=== PATIENT | female | born 1975 | race American Indian/Alaskan Native ===

== ENCOUNTER 2017-03-20 10:53 | Emergency (ER) | payer SELFPAY ==
[2017-03-20 11:58] LABS: Anion Gap 18 mmol/L; BUN/Creatinine Ratio 26; Blood Urea Nitrogen 13 mg/dL (7-17); Calcium 9.5 mg/dL (8.4-10.2); Carbon Dioxide 23 mmol/L (22-30); Chloride 99.7 mmol/L (98-107); Glucose 230 mg/dL (65-100); Potassium 4.8 mmol/L (3.6-5.0); Sodium 136 mmol/L (137-145)
[2017-03-20 12:27] LABS: Basophils % (Auto) 0.6 % (0.0-1.8); Eosinophils % (Auto) 1.2 % (0.0-4.3); Hematocrit 40.8 % (30.3-42.9); Hemoglobin 13.4 gm/dl (10.1-14.3); Mean Corpuscular HGB Conc 33 % (30-34); Mean Corpuscular Hemoglobin 31 pg (28-32); Mean Corpuscular Volume 95 fl (79-97); Platelet Count 356 K/mm3 (140-440); Red Blood Count 4.29 M/mm3 (3.65-5.03); Red Cell Distribution Width 12.4 % (13.2-15.2); White Blood Count 8.8 K/mm3 (4.5-11.0)
[2017-03-20] MEDS ORDERED: MORPHINE IV ONE (23:04)
[2017-03-20] MEDS ORDERED: NORCO 10/325 PO ONE (23:40)
--- NOTE | 2017-03-21 01:20 | Emergency Department Report ---
ED General Adult HPI - General Chief complaint: Chest Pain Stated complaint: CHEST PAIN Time Seen by Provider: 03/20/17 23:03 Source: patient Mode of arrival: Ambulatory Limitations: No Limitations - History of Present Illness Initial comments: Patient is a 41-year-old female past medical history of diabetes and hypertension who presents with chest pain. Patient states that chest pain has been going on for the last 2 days is located in the middle of her chest and hurts more when she breathes nothing makes it better. Patient also states that she feels some shortness of breath that's been going on for last couple days. It is worse with exertion and better with rest. It is gradual onset patient denies having any leg swelling or having any nausea or vomiting. Severity scale (0 -10): 4 - Related Data Previous Rx's Medication Instructions Recorded Last Taken Type Naproxen 250 mg PO BID PRN #20 tablet 03/21/17 Unknown Rx Allergies Allergy/AdvReac Type Severity Reaction Status Date / Time No Known Allergies Allergy Unverified 03/20/17 11:10 ED Review of Systems ROS: Stated complaint: CHEST PAIN Other details as noted in HPI Constitutional: denies: chills, fever Eyes: denies: eye pain, eye discharge, vision change ENT: denies: ear pain, throat pain Respiratory: shortness of breath. denies: cough, wheezing Cardiovascular: chest pain. denies: palpitations Endocrine: no symptoms reported Gastrointestinal: denies: abdominal pain, nausea, diarrhea Genitourinary: denies: urgency, dysuria, discharge Musculoskeletal: denies: back pain, joint swelling, arthralgia Skin: denies: rash, lesions Neurological: denies: headache, weakness, paresthesias Psychiatric: denies: anxiety, depression Hematological/Lymphatic: denies: easy bleeding, easy bruising ED Past Medical Hx - Past Medical History Previous Medical History?: Yes Hx Diabetes: Yes - Surgical History Past Surgical History?: No - Social History Smoking Status: Never Smoker Substance Use Type: None - Medications Home Medications: Home Medications Medication Instructions Recorded Confirmed Last Taken Type Naproxen 250 mg PO BID PRN #20 tablet 03/21/17 Unknown Rx ED Physical Exam - General Limitations: No Limitations General appearance: alert, in no apparent distress - Head Head exam: Present: atraumatic, normocephalic - Eye Eye exam: Present: normal appearance - ENT ENT exam: Present: mucous membranes moist - Neck Neck exam: Present: normal inspection - Respiratory Respiratory exam: Present: normal lung sounds bilaterally. Absent: respiratory distress - Cardiovascular Cardiovascular Exam: Present: regular rate, normal rhythm. Absent: systolic murmur, diastolic murmur, rubs, gallop - GI/Abdominal GI/Abdominal exam: Present: soft, normal bowel sounds - Extremities Exam Extremities exam: Present: normal inspection - Back Exam Back exam: Present: normal inspection - Neurological Exam Neurological exam: Present: alert, oriented X3 - Psychiatric Psychiatric exam: Present: normal affect, normal mood - Skin Skin exam: Present: warm, dry, intact, normal color. Absent: rash ED Course Vital Signs 03/20/17 03/20/17 03/20/17 11:06 17:05 23:30 Temperature 98.5 F 98.6 F 98.3 F Pulse Rate 93 H 86 83 Respiratory 24 20 12 Rate Blood Pressure 143/94 129/88 Blood Pressure 137/84 [Left] O2 Sat by Pulse 100 100 Oximetry ED Medical Decision Making - Lab Data Result diagrams: 03/20/17 11:21 03/20/17 11:21 Lab Results 03/20/17 03/20/17 03/20/17 Range/Units 11:21 11:21 14:40 WBC 8.8 (4.5-11.0) K/mm3 RBC 4.29 (3.65-5.03) M/mm3 Hgb 13.4 (10.1-14.3) gm/dl Hct 40.8 (30.3-42.9) % MCV 95 (79-97) fl MCH 31 (28-32) pg MCHC 33 (30-34) % RDW 12.4 L (13.2-15.2) % Plt Count 356 (140-440) K/mm3 Lymph % (Auto) 27.9 (13.4-35.0) % [place] % (Auto) 5.7 (0.0-7.3) % Eos % (Auto) 1.2 (0.0-4.3) % Baso % (Auto) 0.6 (0.0-1.8) % Lymph # 2.5 (1.2-5.4) K/mm3 [place] # 0.5 (0.0-0.8) K/mm3 Eos # 0.1 (0.0-0.4) K/mm3 Baso # 0.1 (0.0-0.1) K/mm3 Seg Neutrophils % 64.6 (40.0-70.0) % Seg Neutrophils # 5.7 (1.8-7.7) K/mm3 Sodium 136 L (137-145) mmol/L Potassium 4.8 (3.6-5.0) mmol/L Chloride 99.7 (98-107) mmol/L Carbon Dioxide 23 (22-30) mmol/L Anion Gap 18 mmol/L BUN 13 (7-17) mg/dL Creatinine 0.5 L (0.7-1.2) mg/dL Estimated GFR > 60 ml/min BUN/Creatinine Ratio 26 % Glucose 230 H (65-100) mg/dL Calcium 9.5 (8.4-10.2) mg/dL Troponin T < 0.010 < 0.010 (0.00-0.029) ng/mL NT-Pro-B Natriuret Pep (0-450) pg/mL 03/20/17 03/20/17 Range/Units 23:14 23:14 WBC (4.5-11.0) K/mm3 RBC (3.65-5.03) M/mm3 Hgb (10.1-14.3) gm/dl Hct (30.3-42.9) % MCV (79-97) fl MCH (28-32) pg MCHC (30-34) % RDW (13.2-15.2) % Plt Count (140-440) K/mm3 Lymph % (Auto) (13.4-35.0) % [place] % (Auto) (0.0-7.3) % Eos % (Auto) (0.0-4.3) % Baso % (Auto) (0.0-1.8) % Lymph # (1.2-5.4) K/mm3 [place] # (0.0-0.8) K/mm3 Eos # (0.0-0.4) K/mm3 Baso # (0.0-0.1) K/mm3 Seg Neutrophils % (40.0-70.0) % Seg Neutrophils # (1.8-7.7) K/mm3 Sodium (137-145) mmol/L Potassium (3.6-5.0) mmol/L Chloride (98-107) mmol/L Carbon Dioxide (22-30) mmol/L Anion Gap mmol/L BUN (7-17) mg/dL Creatinine (0.7-1.2) mg/dL Estimated GFR ml/min BUN/Creatinine Ratio % Glucose (65-100) mg/dL Calcium (8.4-10.2) mg/dL Troponin T < 0.010 (0.00-0.029) ng/mL NT-Pro-B Natriuret Pep 13.01 (0-450) pg/mL - EKG Data -: EKG Interpreted by Me - EKG Data 03/21/17 01:22 EKG shows sinus rhythm signs of LVH normal access and some baseline artifact. No ST segment elevation - Radiology Data Radiology results: image reviewed Chest x-ray: Shows no acute cardiopulmonary disease - Medical Decision Making Chief medical diagnosis: Costochondritis Differential medical diagnosis: Non-STEMI, GERD, pneumonia, pneumothorax next line next I will get CBC, CMP, troponin, oral pain medication, EKG, chest x-ray Patient refuses IV scan chest x-ray is unremarkable and imaging is unremarkable. The patient has no leg swelling and her sat is 100% and no tachycardia. Patient unlikely has DVT and has no prolonged travel, leg swelling and does not take oral contraceptive pills. It is unlikely patient has a pulmonary embolism. Discuss with patient's the need for IV contrast to rule out pulmonary embolism. However irrigation shared decision making patient still refuses IV. I'll send patient home with naproxen and a diagnosis of costochondritis. Gave patient an additional verbal discharge instructions. Critical care attestation.: If time is entered above; I have spent that time in minutes in the direct care of this critically ill patient, excluding procedure time. ED Disposition Clinical Impression: SOB (shortness of breath), Hyperglycemia Chest pain Qualifiers: Chest pain type: pleurodynia Qualified Code(s): R07.81 - Pleurodynia Disposition: - TO HOME OR SELFCARE Is pt being admited?: No Does the pt Need Aspirin: No Condition: Stable Instructions: Chest Pain (ED) Prescriptions: Naproxen 250 mg PO BID PRN #20 tablet PRN Reason: Pain Referrals: CHAPARRITA DAVIS MD [Staff Physician] - 3-5 Days
[2017-03-21 03:04] VITALS: BP 112/61
--- NOTE | 2017-03-21 08:24 | XRay Report ---
CHEST 2 VIEWS INDICATION: Chest pain, started when walking stairs. COMPARISON: None similar. FINDINGS: PA and lateral chest radiographs demonstrate normal cardiomediastinal silhouette and clear lungs, given the inspiration. Right hemidiaphragm slightly elevated. Intact bones. CONCLUSION: No acute disease in the chest. Thank you for the opportunity to participate in this patient's care.
== END 2017-03-21 01:30 | disposition home or self-care (01) ==
LOC: ED 10:53
DX: R07.81 Pleurodynia (principal); E11.65 Type 2 diabetes mellitus with hyperglycemia; R06.02 Shortness of breath
CPT/HCPCS: 36415; 71020; 80048; 83880; 84484; 85025; 93005; 93010

== ENCOUNTER 2018-09-30 18:55 | Emergency (ER) | payer OTHER ==
[2018-09-30] MEDS ORDERED: ASPIRIN PO ONE (19:38)
[2018-09-30 20:38] LABS: Basophils # (Auto) 0.2 K/mm3 (0.0-0.1); Basophils % (Auto) 1.5 % (0.0-1.8); Eosinophils # (Auto) 0.1 K/mm3 (0.0-0.4); Eosinophils % (Auto) 1.5 % (0.0-4.3); Hematocrit 41.3 % (30.3-42.9); Hemoglobin 14.3 gm/dl (10.1-14.3); Lymphocytes # (Auto) 2.8 K/mm3 (1.2-5.4); Lymphocytes % (Auto) 27.2 % (13.4-35.0); Mean Corpuscular HGB Conc 35 % (30-34); Mean Corpuscular Volume 96 fl (79-97); Monocytes # (Auto) 0.6 K/mm3 (0.0-0.8); Monocytes % (Auto) 5.5 % (0.0-7.3); Platelet Count 362 K/mm3 (140-440); Red Cell Distribution Width 12.6 % (13.2-15.2)
[2018-09-30 21:01] LABS: BUN/Creatinine Ratio 17; Blood Urea Nitrogen 10 mg/dL (7-17); Calcium 9.7 mg/dL (8.4-10.2); Hemolysis Index 27
--- NOTE | 2018-09-30 21:25 | XRay Report ---
PROCEDURE: XR CHEST ROUTINE 2V TECHNIQUE: Chest radiograph , PA and lateral views. HISTORY: Chest Pain COMPARISONS: CXR 03/20/2017 . FINDINGS: Heart: Normal. Mediastinum/Vessels: Normal. Lungs/Pleural space: Normal. Bony thorax: No acute osseous abnormality. Life support devices: None. IMPRESSION: No acute cardiopulmonary abnormality. No change This document is electronically signed by Dannielle Monson MD., September 30 2018 09:23:01 PM ET
[2018-09-30] MEDS ORDERED: HumuLIN R IV ONE (22:47)
[2018-09-30] MEDS ORDERED: NACL 0.9% 1000 ML 1,000 ML IV ONE (22:47)
--- NOTE | 2018-09-30 23:47 | Emergency Department Report ---
HPI - General Chief Complaint: Weakness Time Seen by Provider: 09/30/18 22:23 - HPI HPI: 43-year-old female presents to the emergency department with a complaint of intermittent right-sided headaches and some general weakness. Patient says that she had a TIA last year and these headaches are the same that she had prior to having the TIA. She has a history of [id number] diabetes and peripheral neuropathy. She denies any vision change, slurred speech, nausea, vomiting, chest pain or any neurological deficits. Patient does say that she has some occasional exertional shortness of breath when she is climbing her stairs. She has no shortness of breath at rest or orthopnea. No recent travel or sick contacts at home. She goes to [facility] for her primary care needs. She has not taken anything for her symptoms prior to arrival. ED Past Medical Hx - Past Medical History Previous Medical History?: Yes Hx CVA: Yes (left-sided weakness) Hx Diabetes: Yes - Surgical History Past Surgical History?: No - Social History Smoking Status: Never Smoker Substance Use Type: None - Medications Home Medications: Home Medications Medication Instructions Recorded Confirmed Last Taken Type Naproxen 250 mg PO BID PRN #20 tablet 03/21/17 Unknown Rx ED Review of Systems ROS: Stated complaint: [place]LEY/CHEST PAIN Other details as noted in HPI Comment: All other systems reviewed and negative Constitutional: weakness. denies: chills, fever Eyes: denies: eye pain, vision change ENT: denies: ear pain, throat pain Respiratory: SOB with exertion. denies: cough Cardiovascular: denies: chest pain, palpitations Gastrointestinal: denies: abdominal pain, vomiting Genitourinary: denies: dysuria, discharge Musculoskeletal: denies: back pain, arthralgia Skin: denies: rash, lesions Neurological: headache (intermittent). denies: numbness, paresthesias, confusion Physical Exam - Physical Exam Vital Signs: Vital Signs 09/30/18 09/30/18 09/30/18 19:36 22:18 22:45 Temperature 98.7 F Pulse Rate 108 H Respiratory 18 18 Rate Blood Pressure 154/101 O2 Sat by Pulse 97 98 99 Oximetry 09/30/18 23:31 Temperature Pulse Rate 88 Respiratory 11 L Rate Blood Pressure 120/68 O2 Sat by Pulse 98 Oximetry Physical Exam: GENERAL: The patient is well-developed well-nourished. HEENT: Normocephalic. Atraumatic. Patient has moist mucous membranes. EYES: Extraocular motions are intact. Pupils are equal and reactive to light bilaterally. No nystagmus. NECK: Supple. Trachea is midline. CHEST/LUNGS: Clear to auscultation. There is no respiratory distress noted. HEART/CARDIOVASCULAR: Regular. There is no tachycardia. There is no obvious murmur. ABDOMEN: Abdomen is soft, nontender. Patient has normal bowel sounds. There is no abdominal distention. SKIN: Skin is warm and dry. NEURO: The patient is awake, alert, and oriented. The patient is cooperative. The patient has no focal neurologic deficits. The patient has normal speech. Cranial nerves II through XII grossly intact. No pronator drift. No dysmetria. No facial asymmetry. MUSCULOSKELETAL: There is no tenderness or deformity. There is no limitation range of motion. There is no evidence of acute injury. ED Course Vital Signs 09/30/18 09/30/18 09/30/18 19:36 22:18 22:45 Temperature 98.7 F Pulse Rate 108 H Respiratory 18 18 Rate Blood Pressure 154/101 O2 Sat by Pulse 97 98 99 Oximetry 09/30/18 23:31 Temperature Pulse Rate 88 Respiratory 11 L Rate Blood Pressure 120/68 O2 Sat by Pulse 98 Oximetry ED Medical Decision Making - Lab Data Result diagrams: 09/30/18 20:06 09/30/18 20:06 - EKG Data -: EKG Interpreted by Me EKG shows normal: sinus rhythm, axis, intervals, QRS complexes (q waves to the anterior leads), ST-T waves Rate: normal - EKG Data When compared to previous EKG there are: no significant change Interpretation: unchanged when compared t (03/20/17) - Radiology Data Radiology results: report reviewed, image reviewed interpreted by me: Chest x-ray does not show any pneumothorax, pleural effusion, pneumonia or obvious focal consolidation. PROCEDURE: CT HEAD/BRAIN WO CON TECHNIQUE: Routine axial imaging was obtained of the brain without IV contrast. HISTORY: weakness COMPARISONS: None FINDINGS: There is no evidence of acute stroke or hemorrhage. The ventricular system is appropriate in size and is symmetric. The basal cisterns appear normal. The sinuses reveal mild mucosal thickening in the sphenoid sinus. The mastoid air cells are well pneumatized. The calvarium is unremarkable. IMPRESSION: No acute intracranial process.. This document is electronically signed by Maikol Maya MD., October 01 2018 12:38:12 AM ET Transcribed By: RB Dictated By: MAIKOL MAYA MD Electronically Authenticated By: MAIKOL MAYA MD Signed Date/Time: 10/01/18 0040 - Medical Decision Making Patient presents with a complaint of an intermittent right-sided headache and some generalized weakness. On examination she has no focal, motor or sensory deficits and cranial nerves are intact. She has an NIH stroke scale of 0. CT scan of the head without contrast was done that does not show any bleed, shift, mass, ischemia or any other acute process. EKG shows some Q waves to the anterior leads but otherwise no ST elevation CA or dysrhythmia and is unchanged from previous. Patient's labs were mostly unremarkable except for hyperglycemia and elevated TSH level. Blood sugar was about 380 but there is no venous acidosis or elevated anion gap. Patient was given some IV fluid resuscitation and a dose of IV insulin and her blood sugar came down into the 200s. She had an elevated TSH of about 9 but a normal free T4 level. Vital signs stable throughout her ED course. The patient was reevaluated multiple times of arrival 12 hours and says that she is feeling improved. She'll be discharged home to follow up with her primary care physician. She will return to the ER with any worsening of her symptoms or any acute distress. We discussed staying away from foods that are high in sugar, carbohydrates and starches and she will keep a blood sugar log. - Differential Diagnosis TIA, HHNK, DKA, Dysrythmia Critical Care Time: No Critical care attestation.: If time is entered above; I have spent that time in minutes in the direct care of this critically ill patient, excluding procedure time. ED Disposition Clinical Impression: Intermittent headache, Hyperglycemia without ketosis, Generalized weakness Disposition: DC-01 TO HOME OR SELFCARE Is pt being admited?: No Condition: Stable Instructions: Weakness (ED), Acute Headache (ED), Diabetic Hyperglycemia (ED) Additional Instructions: Please follow-up with your primary care physician in the next few days. Return to the emergency Department with any worsening of your symptoms or any acute d istress. Continue taking all of your medications as previously prescribed. Try and stay away from foods that are high in carbohydrates, starches and sugars. Keep a blood sugar log. Referrals: Primary Care Provider, Your [Other] - 3-5 Days Time of Disposition: 01:20 - Assessment Assessment Interval: Baseline - Level of Consciousness 1a. Level of Consciousness: alert/keenly responsive - LOC Questions 1b. LOC Questions: answers both correctly - LOC Command 1c. LOC Commands: performs tasks correctly - Best Gaze 2. Best Gaze: normal - Visual 3. Visual: no visual loss - Facial Palsy 4. Facial Palsy: normal symmetrical movement - Motor Arm 5a. Motor Arm Left: no drift 5b. Motor Arm Right: no drift - Motor Leg 6a. Motor Leg Left: no drift 6b. Motor Leg Right: no drift - Limb Ataxia 7. Limb Ataxia: absent - Sensory 8. Sensory: normal - Best Language 9. Best Language: no aphasia - Dysarthria 10. Dysarthria: normal - Extinction and Inattention 11. Extinction/Inattention: no abnormality - Scoring Total Score: 0 Stroke Severity: No Stroke Symptoms
--- NOTE | 2018-10-01 00:40 | Cat Scan Report ---
PROCEDURE: CT HEAD/BRAIN WO CON TECHNIQUE: Routine axial imaging was obtained of the brain without IV contrast. HISTORY: weakness COMPARISONS: None FINDINGS: There is no evidence of acute stroke or hemorrhage. The ventricular system is appropriate in size and is symmetric. The basal cisterns appear normal. The sinuses reveal mild mucosal thickening in the sp henoid sinus. The mastoid air cells are well pneumatized. The calvarium is unremarkable. IMPRESSION: No acute intracranial process.. This document is electronically signed by Maikol Maya MD., October 01 2018 12:38:12 AM ET
[2018-10-01 01:45] VITALS: BP 127/84
== END 2018-10-01 01:44 | disposition home or self-care (01) ==
LOC: ED 18:55
DX: R51 Headache (principal); R53.1 Weakness; E11.65 Type 2 diabetes mellitus with hyperglycemia; E11.40 Type 2 diabetes mellitus with diabetic neuropathy, unspecified; Z86.73 Personal history of transient ischemic attack (TIA), and cerebral infarction without residual deficits
CPT/HCPCS: 36415; 70450; 71046; 80048; 82805; 82962; 84439; 84443; 84484; 85025; 85652; 93005; 93010; 96361; 96374; 99285; J7030; J1815

== ENCOUNTER 2020-01-31 11:15 | Emergency (ER) | payer SELFPAY ==
--- NOTE | 2020-01-31 14:06 | Emergency Department Report ---
ED Shortness of Breath HPI - General Chief Complaint: Extremity Problem,Nontraumatic Stated Complaint: SOB, LEFT ARM PAIN Time Seen by Provider: 01/31/20 11:57 Source: patient Mode of arrival: Ambulatory Limitations: No Limitations - History of Present Illness Initial Comments: Patient is a 44-year-old female presents emergency room with complaints of s hortness of breath that began this morning. She states that she was standing up trying to get ready for work and had to sit down because she felt so short of breath. she states that she then went to work and was unable to finish work because she was feeling shortness of breath with exertion. She states that she also has substernal chest pain which she describes as a tightness. She states feels a tingling sensation in her left arm. She denies any fever, cough, vomiting, diarrhea, leg swelling, pleuritic CP. She has a past medical history of DM, HTN, gallstones, "mild stroke." She denies any allergies to medications. - Related Data Previous Rx's Medication Instructions Recorded Last Taken Type Naproxen 250 mg PO BID PRN #20 tablet 03/21/17 Unknown Rx Allergies Allergy/AdvReac Type Severity Reaction Status Date / Time No Known Allergies Allergy Unverified 03/20/17 11:10 ED Review of Systems ROS: Stated complaint: SOB, LEFT ARM PAIN Other details as noted in HPI Comment: All other systems reviewed and negative ED Past Medical Hx - Past Medical History Previous Medical History?: Yes Hx CVA: Yes (left-sided weakness) Hx Diabetes: Yes - Social History Smoking Status: Never Smoker Substance Use Type: None - Medications Home Medications: Home Medications Medication Instructions Recorded Confirmed Last Taken Type Naproxen 250 mg PO BID PRN #20 tablet 03/21/17 Unknown Rx ED Physical Exam - General Limitations: No Limitations General appearance: alert, in no apparent distress - Head Head exam: Present: atraumatic, normocephalic - Eye Eye exam: Present: normal appearance - ENT ENT exam: Present: mucous membranes moist - Respiratory Respiratory exam: Present: normal lung sounds bilaterally. Absent: respiratory distress, wheezes, rales, rhonchi, stridor, chest wall tenderness, accessory muscle use, decreased breath sounds, prolonged expiratory - Cardiovascular Cardiovascular Exam: Present: regular rate, normal rhythm, normal heart sounds. Absent: systolic murmur, diastolic murmur, rubs, gallop - Extremities Exam Extremities exam: Absent: pedal edema - Neurological Exam Neurological exam: Present: alert, oriented X3 - Psychiatric Psychiatric exam: Present: normal affect, normal mood - Skin Skin exam: Present: warm, dry, intact ED Course Vital Signs 01/31/20 01/31/20 01/31/20 11:18 18:20 18:27 Temperature 98.6 F 97.9 F 97.9 F Pulse Rate 114 H 102 H 102 H Respiratory 18 18 18 Rate Blood Pressure 130/83 Blood Pressure 116/80 116/80 [Left] O2 Sat by Pulse 98 99 Oximetry - Reevaluation(s) Reevaluation #1: 01/31/20 15:08 Called lab regarding patient's delayed lab work, they state they are going to figure it out and call back ED Medical Decision Making - Lab Data Result diagrams: 01/31/20 15:28 01/31/20 13:06 Lab Results 01/31/20 01/31/20 01/31/20 Range/Units 13:06 13:06 13:06 WBC (4.5-11.0) K/mm3 RBC (3.65-5.03) M/mm3 Hgb (10.1-14.3) gm/dl Hct (30.3-42.9) % MCV (79-97) fl MCH (28-32) pg MCHC (30-34) % RDW (13.2-15.2) % Plt Count (140-440) K/mm3 Lymph % (Auto) (13.4-35.0) % [place] % (Auto) (0.0-7.3) % Eos % (Auto) (0.0-4.3) % Baso % (Auto) (0.0-1.8) % Lymph # (1.2-5.4) K/mm3 [place] # (0.0-0.8) K/mm3 Eos # (0.0-0.4) K/mm3 Baso # (0.0-0.1) K/mm3 Seg Neutrophils % (40.0-70.0) % Seg Neutrophils # (1.8-7.7) K/mm3 PT (12.2-14.9) Sec. INR (0.87-1.13) APTT (24.2-36.6) Sec. D-Dimer (0-234) ng/mlDDU Sodium 135 L (137-145) mmol/L Potassium 4.7 (3.6-5.0) mmol/L Chloride 101.3 (98-107) mmol/L Carbon Dioxide 15 L (22-30) mmol/L Anion Gap 23 mmol/L BUN 14 (7-17) mg/dL Creatinine 0.5 L (0.6-1.2) mg/dL Estimated GFR > 60 ml/min BUN/Creatinine Ratio 28 % Glucose 256 H (65-100) mg/dL Calcium 10.4 H (8.4-10.2) mg/dL Magnesium 2.40 H (1.7-2.3) mg/dL Total Bilirubin 0.50 (0.1-1.2) mg/dL AST 16 (5-40) units/L ALT 13 (7-56) units/L Alkaline Phosphatase 97 (35-129) units/L Total Creatine Kinase 60 (30-135) units/L Troponin T < 0.010 (0.00-0.029) ng/mL NT-Pro-B Natriuret Pep < 5 (0-450) pg/mL Total Protein 8.3 H (6.3-8.2) g/dL Albumin 4.0 (3.9-5) g/dL Albumin/Globulin Ratio 0.9 % TSH 4.570 H (0.270-4.200) mlU/mL Free T4 (0.76-1.46) ng/dL HCG, Qual Negative (Negative) 01/31/20 01/31/20 01/31/20 Range/Units 13:06 15:28 15:28 WBC 9.3 (4.5-11.0) K/mm3 RBC 4.55 (3.65-5.03) M/mm3 Hgb 14.7 H (10.1-14.3) gm/dl Hct 43.5 H (30.3-42.9) % MCV 96 (79-97) fl MCH 32 (28-32) pg MCHC 34 (30-34) % RDW 12.9 L (13.2-15.2) % Plt Count 386 (140-440) K/mm3 Lymph % (Auto) 26.4 (13.4-35.0) % [place] % (Auto) 6.5 (0.0-7.3) % Eos % (Auto) 0.6 (0.0-4.3) % Baso % (Auto) 0.6 (0.0-1.8) % Lymph # 2.5 (1.2-5.4) K/mm3 [place] # 0.6 (0.0-0.8) K/mm3 Eos # 0.1 (0.0-0.4) K/mm3 Baso # 0.1 (0.0-0.1) K/mm3 Seg Neutrophils % 65.9 (40.0-70.0) % Seg Neutrophils # 6.2 (1.8-7.7) K/mm3 PT 12.7 (12.2-14.9) Sec. INR 0.94 (0.87-1.13) APTT 27.4 (24.2-36.6) Sec. D-Dimer < 135.00 (0-234) ng/mlDDU Sodium (137-145) mmol/L Potassium (3.6-5.0) mmol/L Chloride (98-107) mmol/L Carbon Dioxide (22-30) mmol/L Anion Gap mmol/L BUN (7-17) mg/dL Creatinine (0.6-1.2) mg/dL Estimated GFR ml/min BUN/Creatinine Ratio % Glucose (65-100) mg/dL Calcium (8.4-10.2) mg/dL Magnesium (1.7-2.3) mg/dL Total Bilirubin (0.1-1.2) mg/dL AST (5-40) units/L ALT (7-56) units/L Alkaline Phosphatase (35-129) units/L Total Creatine Kinase (30-135) units/L Troponin T (0.00-0.029) ng/mL NT-Pro-B Natriuret Pep (0-450) pg/mL Total Protein (6.3-8.2) g/dL Albumin (3.9-5) g/dL Albumin/Globulin Ratio % TSH (0.270-4.200) mlU/mL Free T4 1.04 (0.76-1.46) ng/dL HCG, Qual (Negative) 01/31/20 Range/Units 15:28 WBC (4.5-11.0) K/mm3 RBC (3.65-5.03) M/mm3 Hgb (10.1-14.3) gm/dl Hct (30.3-42.9) % MCV (79-97) fl MCH (28-32) pg MCHC (30-34) % RDW (13.2-15.2) % Plt Count (140-440) K/mm3 Lymph % (Auto) (13.4-35.0) % [place] % (Auto) (0.0-7.3) % Eos % (Auto) (0.0-4.3) % Baso % (Auto) (0.0-1.8) % Lymph # (1.2-5.4) K/mm3 [place] # (0.0-0.8) K/mm3 Eos # (0.0-0.4) K/mm3 Baso # (0.0-0.1) K/mm3 Seg Neutrophils % (40.0-70.0) % Seg Neutrophils # (1.8-7.7) K/mm3 PT (12.2-14.9) Sec. INR (0.87-1.13) APTT (24.2-36.6) Sec. D-Dimer (0-234) ng/mlDDU Sodium (137-145) mmol/L Potassium (3.6-5.0) mmol/L Chloride (98-107) mmol/L Carbon Dioxide (22-30) mmol/L Anion Gap mmol/L BUN (7-17) mg/dL Creatinine (0.6-1.2) mg/dL Estimated GFR ml/min BUN/Creatinine Ratio % Glucose (65-100) mg/dL Calcium (8.4-10.2) mg/dL Magnesium (1.7-2.3) mg/dL Total Bilirubin (0.1-1.2) mg/dL AST (5-40) units/L ALT (7-56) units/L Alkaline Phosphatase (35-129) units/L Total Creatine Kinase (30-135) units/L Troponin T < 0.010 (0.00-0.029) ng/mL NT-Pro-B Natriuret Pep (0-450) pg/mL Total Protein (6.3-8.2) g/dL Albumin (3.9-5) g/dL Albumin/Globulin Ratio % TSH (0.270-4.200) mlU/mL Free T4 (0.76-1.46) ng/dL HCG, Qual (Negative) - EKG Data EKG shows normal: sinus rhythm, axis, intervals, QRS complexes, ST-T waves Rate: tachycardia - Radiology Data Radiology results: report reviewed CHEST 2 VIEWS INDICATION / CLINICAL INFORMATION: MAIN. COMPARISON: 09/30/2018 FINDINGS: SUPPORT DEVICES: None. HEART / MEDIASTINUM: No significant abnormality. LUNGS / PLEURA: No significant pulmonary or pleural abnormality. No pneumothorax. ADDITIONAL FINDINGS: No significant additional findings. IMPRESSION: 1. No acute findings. Signer Name: Leti Hoffmann MD Signed: 01/31/2020 2:48 PM Workstation Name: [id number] Transcribed By: VIOT Dictated By: LETI HOFFMANN III Electronically Authenticated By: LETI HOFFMANN III Signed Date/Time: 01/31/201447 DD/ 46 TD/TT: - Medical Decision Making Patient is a 44-year-old female presents emergency room with complaints of shortness of breath that began this morning. She states that she was standing up trying to get ready for work and had to sit down because she felt so short of breath. she states that she then went to work and was unable to finish work because she was feeling shortness of breath with exertion. She states that she also has substernal chest pain which she describes as a tightness. She states feels a tingling sensation in her left arm. She denies any fever, cough, vomiting, diarrhea, leg swelling, pleuritic CP. She has a past medical history of DM, HTN, gallstones, "mild stroke." She denies any allergies to medications. Initial vitals with tachycardia which improved upon repeat, patient is afebrile, no hypoxia. Breath sounds are clear on exam, no wheezing, no rales, no rhonchi, no respiratory distress, no stridor, no accessory muscle use. EKG with sinus tachycardia at 105, otherwise normal, no STEMI. D-dimer is negative, troponin is negative x2. TSH is elevated, T4 is normal. Blood sugar is elevated at 256. CXR: 1. No acute findings. pt given 1L of IVF. heart score is 2, ALINA score is 1, low risk for cardiac event. pt has been evaluated in the ED for these symptoms in the past. pt will be referred to outpatient cardiology as heart score is 2 and the hospital protocol is to refer pt for outpatient. pt states she is feeling better and ready to go home. I discussed in detail with pt very strict return precautions the importance of follow up and advised if symptoms not improving return immediately, she verbalized understanding. advised pt Please follow-up with a senior front end developer. Please follow-up with your primary care doctor regarding the elevation in your thyroid level (TSH). Return to emergency room for any new or worsening symptoms. Critical care attestation.: If time is entered above; I have spent that time in minutes in the direct care of this critically ill patient, excluding procedure time. ED Disposition Clinical Impression: Elevated TSH, Elevated glucose level Dyspnea Qualifiers: Dyspnea type: dyspnea on exertion Qualified Code(s): R06.00 - Dyspnea, unspecified Chest pain Qualifiers: Chest pain type: unspecified Qualified Code(s): R07.9 - Chest pain, unspecified Disposition: DC-01 TO HOME OR SELFCARE Is pt being admited?: No Does the pt Need Aspirin: No Condition: Stable Instructions: Chest Pain (ED), Hyperthyroidism (ED), Dyspnea (ED) Additional Instructions: Please follow-up with a senior front end developer. Please follow-up with your primary care doctor regarding the elevation in your thyroid level (TSH). Return to emergency room for any new or worsening symptoms. Referrals: TINO LEMOS MD [Other] - 2-3 Days JUSTINE CONTRERAS MD [Staff Physician] - 2-3 Days Forms: Work/School Release Form(ED) Time of Disposition: 18:41 Print Language: NEPALESE
--- NOTE | 2020-01-31 14:53 | XRay Report ---
CHEST 2 VIEWS INDICATION / CLINICAL INFORMATION: MAIN. COMPARISON: 09/30/2018 FINDINGS: SUPPORT DEVICES: None. HEART / MEDIASTINUM: No significant abnormality. LUNGS / PLEURA: No significant pulmonary or pleural abnormality. No pneumothorax. ADDITIONAL FINDINGS: No significant additional findings. IMPRESSION: 1. No acute findings. Signer Name: Maikol Hoffmann MD Signed: 01/31/2020 2:48 PM Workstation Name: [id number]
[2020-01-31 15:25] LABS: Alanine Aminotransferase 13 units/L (7-56); Blood Urea Nitrogen 14 mg/dL (7-17); Calcium 10.4 mg/dL (8.4-10.2); Hemolysis Index 61
[2020-01-31 15:30] LABS: BUN/Creatinine Ratio 28
[2020-01-31 16:05] LABS: Basophils # (Auto) 0.1 K/mm3 (0.0-0.1); Basophils % (Auto) 0.6 % (0.0-1.8); Eosinophils # (Auto) 0.1 K/mm3 (0.0-0.4); Eosinophils % (Auto) 0.6 % (0.0-4.3); Hematocrit 43.5 % (30.3-42.9); Hemoglobin 14.7 gm/dl (10.1-14.3); Lymphocytes # (Auto) 2.5 K/mm3 (1.2-5.4); Lymphocytes % (Auto) 26.4 % (13.4-35.0); Mean Corpuscular HGB Conc 34 % (30-34); Mean Corpuscular Volume 96 fl (79-97); Monocytes # (Auto) 0.6 K/mm3 (0.0-0.8); Monocytes % (Auto) 6.5 % (0.0-7.3); Platelet Count 386 K/mm3 (140-440); Red Blood Count 4.55 M/mm3 (3.65-5.03); Red Cell Distribution Width 12.9 % (13.2-15.2)
[2020-01-31] MEDS ORDERED: SODIUM CHLORIDE 0.9% 1000 ML 1,000 ML IV ONE (16:11)
[2020-01-31 16:15] LABS: INR 0.94 (0.87-1.13)
[2020-01-31 16:16] LABS: Partial Thromboplastin Time 27.4 Sec. (24.2-36.6)
[2020-01-31 18:22] VITALS: BP 116/80
== END 2020-01-31 18:49 | disposition home or self-care (01) ==
LOC: ED 11:15
DX: R07.9 Chest pain, unspecified (principal); R06.00 Dyspnea, unspecified; R79.89 Other specified abnormal findings of blood chemistry; E11.9 Type 2 diabetes mellitus without complications; I10 Essential (primary) hypertension; Z86.73 Personal history of transient ischemic attack (TIA), and cerebral infarction without residual deficits; Z79.899 Other long term (current) drug therapy
CPT/HCPCS: 36415; 71046; 80053; 82550; 83735; 83880; 84439; 84443; 84481; 84484; 84703; 85025; 85379; 85610; 85730; 93005; 96360; 99284; J7030

== ENCOUNTER 2020-04-25 11:33 | Emergency (ER) | payer OTHER ==
--- NOTE | 2020-04-25 11:41 | Event Note ---
ED Screening Note Date of service: 04/25/20 Time: 11:40 ED Screening Note: Patient complains of right upper quadrant pain States history of gallstones and states she is needing a cholecystectomy This initial assessment/diagnostic orders/clinical plan/treatment(s) is/are subject to change based on patients health status, clinical progression and re- assessment by fellow clinical providers in the ED. Further treatment and workup at subsequent clinical providers discretion. Patient/guardian urged not to elope from the ED as their condition may be serious if not clinically assessed and managed. Initial orders include: Labs Ultrasound
[2020-04-25 11:58] VITALS: BP 125/101
[2020-04-25 12:50] LABS: Basophils # (Auto) 0.1 K/mm3 (0.0-0.1); Basophils % (Auto) 0.9 % (0.0-1.8); Eosinophils # (Auto) 0.1 K/mm3 (0.0-0.4); Eosinophils % (Auto) 0.9 % (0.0-4.3); Hematocrit 41.3 % (30.3-42.9); Lymphocytes # (Auto) 1.9 K/mm3 (1.2-5.4); Lymphocytes % (Auto) 24.8 % (13.4-35.0); Mean Corpuscular HGB Conc 34 % (30-34); Mean Corpuscular Volume 95 fl (79-97); Monocytes # (Auto) 0.4 K/mm3 (0.0-0.8); Monocytes % (Auto) 5.5 % (0.0-7.3); Platelet Count 385 K/mm3 (140-440); Red Blood Count 4.35 M/mm3 (3.65-5.03); Red Cell Distribution Width 12.6 % (13.2-15.2)
--- NOTE | 2020-04-25 13:00 | Ultrasound Report ---
LIMITED RUQ ABDOMINAL ULTRASOUND INDICATION / CLINICAL INFORMATION: Pain, history of gallstones. COMPARISON: None available at the time of interpretation. FINDINGS: PANCREAS: Visualized portions of the pancreas are within normal limits. ABDOMINAL AORTA: No significant abnormality. IVC: No significant abnormality. LIVER: The liver measures 15.1 cm in length. The liver demonstrates a normal echogenicity and morpho logy. Main portal vein is patent. GALLBLADDER: Wall echo shadow sign present in the gallbladder fossa, most consistent with cholelithia sis in a contracted gallbladder. Borderline gallbladder wall thickening, measuring 3-4 mm, may be due to contraction of the gallbladder. No pericholecystic fluid. BILE DUCTS: No significant abnormality. Common bile duct measures 6.7 mm. RIGHT KIDNEY: No significant abnormality visualized. FREE FLUID: None. ADDITIONAL FINDINGS: None. IMPRESSION: 1. Wall echo shadow sign involving the gallbladder fossa is most consistent with cholelithiasis in a contracted gallbladder. Borderline gallbladder wall thickening may be due to contraction of the gallb ladder. No additional sonographic findings of cholecystitis. 2. The common bile duct is at the upper limits of normal. Recommend correlation with laboratory value s to exclude distal biliary obstruction. 3. Otherwise, unremarkable right upper quadrant ultrasound. Signer Name: Carlos Sanchez MD Signed: 04/25/2020 12:55 PM Workstation Name: [id number]
[2020-04-25 13:07] LABS: Alanine Aminotransferase 10 units/L (7-56); Blood Urea Nitrogen 15 mg/dL (7-17); Calcium 9.9 mg/dL (8.4-10.2); Hemolysis Index 4
[2020-04-25 13:16] LABS: BUN/Creatinine Ratio 30
[2020-04-25 13:26] LABS: HCG Qualitative,Urine Negative (Negative)
[2020-04-25 13:29] LABS: Bilirubin,Urine NEG (Negative); Blood,Urine LG (Negative); Color,Urine Straw (Yellow); Mucus,Urine FEW /HPF; Protein,Urine <15 mg/dL mg/dL (Negative); Urobilinogen,Urine < 2.0 mg/dL (<2.0)
--- NOTE | 2020-04-25 14:36 | Emergency Department Report ---
ED Abdominal Pain HPI - General Chief Complaint: Abdominal Pain Stated Complaint: CHEST PAIN Time Seen by Provider: 04/25/20 11:39 Source: patient Mode of arrival: Ambulatory Limitations: No Limitations - History of Present Illness Initial Comments: This is a very pleasant 44-year-old female who presents the emergency department chief complaint of right flank pain, right upper quadrant pain radiates into her chest occasionally. She has a past medical history of cholelithiasis and states she feels that this is acting up again. She states this started 2 days ago after eating and has been intermittently bothering her since. She reports a history of issues with her colon that is currently being worked up by GI doctor which she is waiting to have a colonoscopy. She denies any associated fevers, chills, night sweats, headache, dizziness, blurry vision, hematemesis, melena, hematochezia, weakness or any other associated symptoms. MD Complaint: abdominal pain - Related Data Previous Rx's Medication Instructions Recorded Last Taken Type Naproxen 250 mg PO BID PRN #20 tablet 03/21/17 Unknown Rx Ondansetron [Zofran Odt] 4 mg PO Q8HR #21 tab.rapdis 04/25/20 Unknown Rx Allergies Allergy/AdvReac Type Severity Reaction Status Date / Time No Known Allergies Allergy Unverified 03/20/17 11:10 ED Review of Systems ROS: Stated complaint: CHEST PAIN Other details as noted in HPI Comment: All other systems reviewed and negative Constitutional: denies: chills, fever Eyes: denies: eye pain, eye discharge, vision change ENT: denies: ear pain, throat pain Respiratory: denies: cough, shortness of breath, wheezing Cardiovascular: denies: chest pain, palpitations Endocrine: no symptoms reported Gastrointestinal: as per HPI, abdominal pain, nausea. denies: diarrhea Genitourinary: denies: urgency, dysuria, discharge Musculoskeletal: denies: back pain, joint swelling, arthralgia Skin: denies: rash, lesions Neurological: denies: headache, weakness, paresthesias Psychiatric: denies: anxiety, depression Hematological/Lymphatic: denies: easy bleeding, easy bruising ED Past Medical Hx - Past Medical History Previous Medical History?: Yes Hx CVA: Yes (left-sided weakness) Hx Diabetes: Yes - Surgical History Past Surgical History?: No - Social History Smoking Status: Unknown if ever smoked Substance Use Type: None - Medications Home Medications: Home Medications Medication Instructions Recorded Confirmed Last Taken Type Naproxen 250 mg PO BID PRN #20 tablet 03/21/17 Unknown Rx Ondansetron [Zofran Odt] 4 mg PO Q8HR #21 tab.rapdis 04/25/20 Unknown Rx ED Physical Exam - General Limitations: No Limitations General appearance: alert, in no apparent distress - Head Head exam: Present: atraumatic, normocephalic - Eye Eye exam: Present: normal appearance, PERRL, EOMI Pupils: Present: normal accommodation - ENT ENT exam: Present: normal exam, normal orophraynx, mucous membranes moist - Neck Neck exam: Present: normal inspection, full ROM. Absent: tenderness, meningismus - Respiratory Respiratory exam: Present: normal lung sounds bilaterally. Absent: respiratory distress, wheezes, rales, rhonchi, stridor - Cardiovascular Cardiovascular Exam: Present: regular rate, normal rhythm, normal heart sounds. Absent: systolic murmur, diastolic murmur, rubs, gallop - GI/Abdominal GI/Abdominal exam: Present: soft, tenderness (There is some mild tenderness to the right upper quadrant, there is a negative Bess sign, negative McBurney's point tenderness, no rebound or guarding), normal bowel sounds. Absent: distended, guarding, rebound, rigid - Extremities Exam Extremities exam: Present: normal inspection, full ROM, normal capillary refill. Absent: tenderness, calf tenderness - Back Exam Back exam: Present: normal inspection, full ROM. Absent: tenderness, CVA tenderness (R), CVA tenderness (L) - Neurological Exam Neurological exam: Present: alert, oriented X3 - Psychiatric Psychiatric exam: Present: normal affect, normal mood - Skin Skin exam: Present: warm, dry, intact, normal color. Absent: rash ED Course Vital Signs 04/25/20 11:35 Temperature 98.5 F Pulse Rate 106 H Respiratory 14 Rate Blood Pressure 125/101 O2 Sat by Pulse 95 Oximetry ED Medical Decision Making - Lab Data Result diagrams: 04/25/20 12:28 04/25/20 12:28 Lab Results 04/25/20 04/25/20 04/25/20 Range/Units 12:05 12:28 12:28 WBC 7.7 (4.5-11.0) K/mm3 RBC 4.35 (3.65-5.03) M/mm3 Hgb 14.0 (10.1-14.3) gm/dl Hct 41.3 (30.3-42.9) % MCV 95 (79-97) fl MCH 32 (28-32) pg MCHC 34 (30-34) % RDW 12.6 L (13.2-15.2) % Plt Count 385 (140-440) K/mm3 Lymph % (Auto) 24.8 (13.4-35.0) % [place] % (Auto) 5.5 (0.0-7.3) % Eos % (Auto) 0.9 (0.0-4.3) % Baso % (Auto) 0.9 (0.0-1.8) % Lymph # (Auto) 1.9 (1.2-5.4) K/mm3 [place] # (Auto) 0.4 (0.0-0.8) K/mm3 Eos # (Auto) 0.1 (0.0-0.4) K/mm3 Baso # (Auto) 0.1 (0.0-0.1) K/mm3 Seg Neutrophils % 67.9 (40.0-70.0) % Seg Neutrophils # 5.2 (1.8-7.7) K/mm3 Sodium 138 (137-145) mmol/L Potassium 4.6 (3.6-5.0) mmol/L Chloride 103.1 (98-107) mmol/L Carbon Dioxide 25 (22-30) mmol/L Anion Gap 15 mmol/L BUN 15 (7-17) mg/dL Creatinine 0.5 L (0.6-1.2) mg/dL Estimated GFR > 60 ml/min BUN/Creatinine Ratio 30 % Glucose 284 H (65-100) mg/dL Calcium 9.9 (8.4-10.2) mg/dL Total Bilirubin 0.40 (0.1-1.2) mg/dL AST 9 (5-40) units/L ALT 10 (7-56) units/L Alkaline Phosphatase 106 (35-129) units/L Total Protein 7.7 (6.3-8.2) g/dL Albumin 4.0 (3.9-5) g/dL Albumin/Globulin Ratio 1.1 % Lipase 21 (13-60) units/L Urine Color Straw (Yellow) Urine Turbidity Clear (Clear) Urine pH 6.0 (5.0-7.0) Ur Specific [place] 1.020 (1.003-1.030) Urine Protein <15 mg/dl (Negative) mg/dL Urine Glucose (UA) >=500 (Negative) mg/dL Urine Ketones Neg (Negative) mg/dL Urine Blood Lg (Negative) Urine Nitrite Neg (Negative) Ur Reducing Substances Not Reportable Urine Bilirubin Neg (Negative) Urine Ictotest Not Reportable Urine Urobilinogen < 2.0 (<2.0) mg/dL Ur Leukocyte Esterase Tr (Negative) Urine WBC (Auto) 1.0 (0.0-6.0) /HPF Urine RBC (Auto) 5.0 (0.0-6.0) /HPF U Epithel Cells (Auto) 1.0 (0-13.0) /HPF Urine Mucus Few /HPF Urine HCG, Qual Negative (Negative) - Radiology Data Radiology results: report reviewed Ultrasound Report Signed Patient: PAULINE ALATORRE MR#: [id number] : 1975 Acct:[id number] Age/Sex: 44 / F ADM Date: 04/25/20 Loc: ED Attending Dr: Ordering Physician: LETY SONI Date of Service: 04/25/20 Procedure(s): US abdomen limited Accession Number(s): [id number] cc: LETY RM RUQ ABDOMINAL ULTRASOUND INDICATION / CLINICAL INFORMATION: Pain, history of gallstones. COMPARISON: None available at the time of interpretation. FINDINGS: PANCREAS: Visualized portions of the pancreas are within normal limits. ABDOMINAL AORTA: No significant abnormality. IVC: No significant abnormality. LIVER: The liver measures 15.1 cm in length. The liver demonstrates a normal echogenicity and morphology. Main portal vein is patent. GALLBLADDER: Wall echo shadow sign present in the gallbladder fossa, most consistent with cholelithiasis in a contracted gallbladder. Borderline gallbladder wall thickening, measuring 3-4 mm, may be due to contraction of the gallbladder. No pericholecystic fluid. BILE DUCTS: No significant abnormality. Common bile duct measures 6.7 mm. RIGHT KIDNEY: No significant abnormality visualized. FREE FLUID: None. ADDITIONAL FINDINGS: None. IMPRESSION: 1. Wall echo shadow sign involving the gallbladder fossa is most consistent with cholelithiasis in a contracted gallbladder. Borderline gallbladder wall thickening may be due to contraction of the gallbladder. No additional sonographic findings of cholecystitis. 2. The common bile duct is at the upper limits of normal. Recommend correlation with laboratory values to exclude distal biliary obstruction. 3. Otherwise, unremarkable right upper quadrant ultrasound. Signer Name: Molly Sanchez MD Signed: 04/25/2020 12:55 PM Workstation Name: [id number] Transcribed By: JS Dictated By: MOLLY LAYNE MD Electronically Authenticated By: MOLLY LAYNE MD Signed Date/Time: 04/25/20 9199 - Medical Decision Making Patient is nontoxic in no acute distress. Vital signs are stable. She is afebrile and her white blood cell count was normal. Her LFTs and lipase are unremarkable. She had some mild tenderness to right upper quadrant and ultrasound was ordered that showed cholelithiasis without cholecystitis, no pericholecystic fluid, no significant bladder wall thickening, no elevation of her white blood cell count, bili or LFTs making acute cholecystitis unlikely. Patient was educated by the signs and symptoms of acute cholecystitis such as th ose mentioned above and if she develops any intractable vomiting, intractable pain, fever she needs to return to the [facility] immediately. We will give her outpatient surgery referral for evaluation. Due to the flank pain we did order a urine which did not show any significant hematuria or pyuria making infection unlikely at this time. She had no right lower quadrant tenderness and a low Diaz score making acute appendicitis unlikely. She has a low Wells risk for PE making this unlikely. She had no shortness of breath or chest pain.. - Differential Diagnosis cholelithiasis, cholecytitis, pancreatitis Critical care attestation.: If time is entered above; I have spent that time in minutes in the direct care of this critically ill patient, excluding procedure time. ED Disposition Clinical Impression: Cholelithiasis Qualifiers: Cholelithiasis location: gallbladder Cholecystitis presence: without cholecystitis Biliary obstruction: without biliary obstruction Qualified Code(s): K80.20 - Calculus of gallbladder without cholecystitis without obstruction Disposition: DC-01 TO HOME OR SELFCARE Is pt being admited?: No Condition: Stable Instructions: Abdominal Pain (ED), Cholelithiasis, Gallbladder Eating Plan Prescriptions: Ondansetron [Zofran Odt] 4 mg PO Q8HR #21 tab.rapdis Forms: Work/School Release Form(ED) Time of Disposition: 15:01
== END 2020-04-25 15:10 | disposition home or self-care (01) ==
LOC: ED 11:33
DX: K80.20 Calculus of gallbladder without cholecystitis without obstruction (principal); E11.9 Type 2 diabetes mellitus without complications; Z79.899 Other long term (current) drug therapy
CPT/HCPCS: 36415; 76705; 80053; 81001; 81025; 83690; 85025

== ENCOUNTER 2020-09-18 15:40 | Emergency (ER) | payer OTHER ==
[2020-09-18 16:21] VITALS: BP 150/81
--- NOTE | 2020-09-18 16:30 | Event Note ---
ED Screening Note Date of service: 09/18/20 Time: 16:29 ED Screening Note: Patient complains of sudden worsening of right upper quadrant pain last night States she is scheduled to see his surgeon on Friday for an obstructing gallstone Denies fever This initial assessment/diagnostic orders/clinical plan/treatment(s) is/are subject to change based on patients health status, clinical progression and re- assessment by fellow clinical providers in the ED. Further treatment and workup at subsequent clinical providers discretion. Patient/guardian urged not to elope from the ED as their condition may be serious if not clinically assessed and managed. Initial orders include: Labs Ultrasound
[2020-09-18 16:59] LABS: Basophils % (Auto) 0.4 % (0.0-1.8); Eosinophils % (Auto) 0.4 % (0.0-4.3); Hematocrit 39.8 % (30.3-42.9); Hemoglobin 13.3 gm/dl (10.1-14.3); Lymphocytes # (Auto) 1.9 K/mm3 (1.2-5.4); Lymphocytes % (Auto) 17.1 % (13.4-35.0); Mean Corpuscular HGB Conc 33 % (30-34); Mean Corpuscular Volume 98 fl (79-97); Monocytes # (Auto) 0.6 K/mm3 (0.0-0.8); Platelet Count 325 K/mm3 (140-440); Red Blood Count 4.07 M/mm3 (3.65-5.03); Red Cell Distribution Width 12.9 % (13.2-15.2)
[2020-09-18 17:07] LABS: Bilirubin,Urine NEG (Negative); Blood,Urine NEG (Negative); Color,Urine Colorless (Yellow); Protein,Urine <15 mg/dL mg/dL (Negative); RBC,Urine < 1.0 /HPF (0.0-6.0); Urobilinogen,Urine < 2.0 mg/dL (<2.0); WBC,Urine < 1.0 /HPF (0.0-6.0)
[2020-09-18 17:16] LABS: Alanine Aminotransferase 14 units/L (7-56); BUN/Creatinine Ratio 14; Blood Urea Nitrogen 14 mg/dL (7-17); Calcium 8.9 mg/dL (8.4-10.2); Hemolysis Index 12
--- NOTE | 2020-09-18 17:38 | Ultrasound Report ---
ULTRASOUND ABDOMEN, LIMITED (RIGHT UPPER QUADRANT) INDICATION: RUQ pain, +gallstone. COMPARISON: 04/25/2020 FINDINGS: Pancreas: Visualized portion shows no significant abnormality. Liver: Normal. Gallbladder: Gallstones and sludge are noted in the lumen of the gallbladder. The gallbladder is dis tended. The largest stone measures approximately 4 cm. The gallbladder wall is not abnormally thicken ed. Bile ducts: Normal. Common Bile Duct measures 4 mm. Free fluid: None. Additional Findings: None IMPRESSION: 1. There are stones and sludge in a distended gallbladder. There is no biliary dilatation. The gallb ladder wall is not thickened. Signer Name: Wade Delgado MD Signed: 09/18/2020 5:33 PM Workstation Name: [id number]
[2020-09-18] MEDS ORDERED: SODIUM CHLORIDE 0.9% 1000 ML 1,000 ML IV ONE ×2 (19:35→22:05)
[2020-09-18] MEDS ORDERED: ONDANSETRON 4 MG/2 ML INJ IV ONE (20:09)
[2020-09-18] MEDS ORDERED: INSULIN REGULAR, HUMAN 100 UNITS/1 ML IV ONE (20:12)
--- NOTE | 2020-09-18 20:12 | Emergency Department Report ---
ED Abdominal Pain HPI - General Chief Complaint: Abdominal Pain Stated Complaint: GALLBLADDER PAIN/DIABETIC Time Seen by Provider: 09/18/20 16:28 Source: patient Mode of arrival: Ambulatory Limitations: No Limitations - History of Present Illness Initial Comments: Patient complains of sudden worsening of right upper quadrant pain last night States she is scheduled to see his surgeon on Friday for an obstructing gallstone Denies fever Location: RUQ Severity scale (0 -10): 9 Quality: stabbing, sharp Consistency: intermittent Improves With: nothing Worsens With: nothing Associated Symptoms: nausea, diarrhea - Related Data Previous Rx's Medication Instructions Recorded Last Taken Type Naproxen 250 mg PO BID PRN #20 tablet 03/21/17 Unknown Rx HYDROcodone/APAP 7.5-325 [[place] 1 each PO Q6HR PRN #12 tablet 09/18/20 Unknown Rx 7.5/325] Ondansetron [Zofran ODT TAB] 4 mg PO Q8HR #21 tab.rapdis 09/18/20 Unknown Rx Allergies Allergy/AdvReac Type Severity Reaction Status Date / Time No Known Allergies Allergy Unverified 03/20/17 11:10 ED Review of Systems ROS: Stated complaint: GALLBLADDER PAIN/DIABETIC Other details as noted in HPI Comment: All other systems reviewed and negative ED Past Medical Hx - Past Medical History Previous Medical History?: Yes Hx CVA: Yes (left-sided weakness) Hx Diabetes: Yes - Surgical History Past Surgical History?: No - Social History Smoking Status: Never Smoker Substance Use Type: None - Medications Home Medications: Home Medications Medication Instructions Recorded Confirmed Last Taken Type Naproxen 250 mg PO BID PRN #20 tablet 03/21/17 Unknown Rx HYDROcodone/APAP 7.5-325 [[place] 1 each PO Q6HR PRN #12 tablet 09/18/20 Unknown Rx 7.5/325] Ondansetron [Zofran ODT TAB] 4 mg PO Q8HR #21 tab.rapdis 09/18/20 Unknown Rx ED Physical Exam - General Limitations: No Limitations General appearance: alert, in no apparent distress - Head Head exam: Present: atraumatic, normocephalic - Eye Eye exam: Present: normal appearance - ENT ENT exam: Present: mucous membranes moist - Neck Neck exam: Present: normal inspection, full ROM - Respiratory Respiratory exam: Present: normal lung sounds bilaterally. Absent: accessory muscle use - Cardiovascular Cardiovascular Exam: Present: tachycardia - GI/Abdominal GI/Abdominal exam: Present: soft, tenderness, normal bowel sounds. Absent: distended - Extremities Exam Extremities exam: Present: normal inspection, full ROM - Back Exam Back exam: Present: normal inspection - Neurological Exam Neurological exam: Present: alert, oriented X3, normal gait - Psychiatric Psychiatric exam: Present: normal affect, normal mood - Skin Skin exam: Present: warm, dry, intact, normal color. Absent: rash ED Course Vital Signs 09/18/20 16:16 Temperature 99.0 F Pulse Rate 111 H Respiratory 18 Rate Blood Pressure 150/81 O2 Sat by Pulse 97 Oximetry ED Medical Decision Making - Lab Data Result diagrams: 09/18/20 16:32 09/18/20 16:32 - Radiology Data Radiology results: report reviewed [facility] [address] [place] [address] Ultrasound Report Signed Patient: PAULINE ALATORRE MR#: [id number] : 1975 Acct:[id number] Age/Sex: 45 / F ADM Date: 09/18/20 Loc: ED Attending Dr: Ordering Physician: LETY SONI Date of Service: 09/18/20 Procedure(s): US abdomen limited Accession Number(s): [id number] cc: LETY SONI ULTRASOUND ABDOMEN, LIMITED (RIGHT UPPER QUADRANT) INDICATION: RUQ pain, +gallstone. COMPARISON: 04/25/2020 FINDINGS: Pancreas: Visualized portion shows no significant abnormality. Liver: Normal. Gallbladder: Gallstones and sludge are noted in the lumen of the gallbladder. The gallbladder is distended. The largest stone measures approximately 4 cm. The gallbladder wall is not abnormally thickened. Bile ducts: Normal. Common Bile Duct measures 4 mm. Free fluid: None. Additional Findings: None IMPRESSION: 1. There are stones and sludge in a distended gallbladder. There is no biliary dilatation. The gallbladder wall is not thickened. Signer Name: Wade Delgado MD Signed: 09/18/2020 5:33 PM Workstation Name: [id number] Transcribed By: Dictated By: Wade Delgado MD Electronically Authenticated By: Wade Delgado MD Signed Date/Time: 09/18/201732 DD/ 1730 TD/TT: Print - Medical Decision Making Patient complains of sudden worsening of right upper quadrant pain last night States she is scheduled to see his surgeon on Friday for an obstructing gallstone Denies fever Ultrasound shows multiple gallstones with no obstruction no dilatation of the gallbladder wall no thickening. White count is within normal limits there is no elevation of her total bilirubin or hepatic functions are within normal limits. Patient will be given IV with normal saline as her blood sugars greater than 500. Also ordered 12 units of regular insulin, Zofran and will give Toradol 15 mg. Critical care attestation.: If time is entered above; I have spent that time in minutes in the direct care of this critically ill patient, excluding procedure time. ED Disposition Clinical Impression: Gallstones Disposition: - TO HOME OR SELFCARE Is pt being admited?: No Does the pt Need Aspirin: No Condition: Stable Instructions: Abdominal Pain (ED), Cholelithiasis, [id number]-[id number] Additional Instructions: Ultrasound shows you have quite a bit gallstones but none are obstructing in yo ur gallbladder is not distended or inflamed. I recommend pain medication increase your fluid intake and follow-up with general surgery. I am discharging you on antinausea medicine as well as pain medication. Do not operate heavy machinery while taking pain medication. Prescriptions: HYDROcodone/APAP 7.5-325 [[place] 7.5/325] 1 each PO Q6HR PRN #12 tablet PRN Reason: Pain Ondansetron [Zofran ODT TAB] 4 mg PO Q8HR #21 tab.rapdis Referrals: PRIMARY CAREMD [Primary Care Provider] - 3-5 Days BERNARDO HINOJOSA MD [Staff Physician] - 3-5 Days Forms: Work/School Release Form(ED)
== END 2020-09-18 23:15 | disposition home or self-care (01) ==
LOC: ED 15:40
DX: K80.80 Other cholelithiasis without obstruction (principal); E11.9 Type 2 diabetes mellitus without complications; Z86.73 Personal history of transient ischemic attack (TIA), and cerebral infarction without residual deficits; Z79.899 Other long term (current) drug therapy
CPT/HCPCS: 36415; 76705; 80053; 81001; 82962; 83690; 85025; 96361; 96374; 96375; 99284; J2405; J7030; J1815

== ENCOUNTER 2021-03-07 08:23 | Emergency (ER) | payer OTHER ==
[2021-03-07 08:39] VITALS: BP 134/66
[2021-03-07 09:22] LABS: Basophils # (Auto) 0.1 K/mm3 (0.0-0.1); Basophils % (Auto) 0.9 % (0.0-1.8); Eosinophils # (Auto) 0.1 K/mm3 (0.0-0.4); Hematocrit 38.3 % (30.3-42.9); Hemoglobin 13.1 gm/dl (10.1-14.3); Lymphocytes # (Auto) 1.9 K/mm3 (1.2-5.4); Lymphocytes % (Auto) 26.9 % (13.4-35.0); Mean Corpuscular HGB Conc 34 % (30-34); Mean Corpuscular Volume 94 fl (79-97); Monocytes # (Auto) 0.5 K/mm3 (0.0-0.8); Monocytes % (Auto) 6.4 % (0.0-7.3); Platelet Count 345 K/mm3 (140-440); Red Blood Count 4.08 M/mm3 (3.65-5.03); Red Cell Distribution Width 12.6 % (13.2-15.2)
--- NOTE | 2021-03-07 09:25 | Emergency Department Report ---
ED Chest Pain HPI - General Chief Complaint: Chest Pain Stated Complaint: CHEST PAIN PUI?: No Time Seen by Provider: 03/07/21 08:43 Source: patient Mode of arrival: Ambulatory Limitations: No Limitations - History of Present Illness Initial Comments: Chief complaint: "I have been having chest pain since October." HPI: This is a 45-year-old female with history of insulin-dependent diabetes, hypercholesterolemia, hypertension, CVA x2, anxiety who presents with chest pain since October. She has had extensive work-up including EGD by salt plant operator, cardiac stress test, Holter monitor, echocardiogram by help desk analyst. Patient jaymie aguirre had this work-up after she was diagnosed with stroke in October. Initially diagnosed at [facility]. She was transferred to [facility]. She was cleared recently by cardiology and neurology in the [facility] system. She is followed by PCP at [facility]. PCP feels that chest pain may be due to nerve damage. In the middle night patient developed chest pressure radiating to her neck and arm with shortness of breath and nausea. EGD ruled out GERD peptic ulcer disease. She comes to the emergency department to determine the cause of her chest pain. Her PCP also suspects atrial fibrillation. Her heart rate ranges from 90 to 120 bpm. Patient currently symptom-free. She has moderate chest pressure shortness of breath almost daily most prominent at night. No change exertion or eating. The chest discomfort wakes her up in the middle night. MD Complaint: chest pain -: Gradual, month(s) (4 months since October) Onset: during rest Pain Location: substernal Pain Radiation: LUE, neck Severity: moderate Quality: tightness, aching Consistency: intermittent Improves With: nothing Worsens With: nothing re: nausea, dyspnea, other (Lightheadedness) Treatments Prior to Arrival: other (Cardiology and gastroenterology evaluations) - Related Data Previous Rx's Medication Instructions Recorded Last Taken Type Naproxen 250 mg PO BID PRN #20 tablet 03/21/17 Unknown Rx HYDROcodone/APAP 7.5-325 [[place] 1 each PO Q6HR PRN #12 tablet 09/18/20 Unknown Rx 7.5/325] Ondansetron [Zofran ODT TAB] 4 mg PO Q8HR #21 tab.rapdis 09/18/20 Unknown Rx Allergies Allergy/AdvReac Type Severity Reaction Status Date / Time No Known Allergies Allergy Verified 03/07/21 08:37 Heart Score - HEART Score History: Slightly suspicious EKG: Non-specific Age: < 45 Risk factors: > 3 risk factors or hx of atherosclerotic disease Troponin: < normal limit HEART Score: 3 - EKG Read Time Time EKG Completed: 00:00 EKG Read Time: 00:00 ED Review of Systems ROS: Stated complaint: CHEST PAIN Other details as noted in HPI Comment: All other systems reviewed and negative Constitutional: denies: chills, fever, malaise Respiratory: shortness of breath. denies: cough Cardiovascular: chest pain Gastrointestinal: nausea ED Past Medical Hx - Past Medical History Previous Medical History?: Yes Hx CVA: Yes (left-sided weakness) Hx Diabetes: Yes - Surgical History Past Surgical History?: Yes Hx Cholecystectomy: Yes Additional Surgical History: EGD - Family History Family history: cancer (Grandmother with colon cancer), diabetes, hypertension, other (Father of heart failure) - Social History Smoking Status: Never Smoker Substance Use Type: None - Medications Home Medications: Home Medications Medication Instructions Recorded Confirmed Last Taken Type Naproxen 250 mg PO BID PRN #20 tablet 03/21/17 Unknown Rx HYDROcodone/APAP 7.5-325 [[place] 1 each PO Q6HR PRN #12 tablet 09/18/20 Unknown Rx 7.5/325] Ondansetron [Zofran ODT TAB] 4 mg PO Q8HR #21 tab.rapdis 09/18/20 Unknown Rx ED Physical Exam - General Limitations: No Limitations General appearance: alert, in no apparent distress, other (Pleasant talkative appears comfortable appears healthy) - Head Head exam: Present: atraumatic, normocephalic - Eye Eye exam: Present: normal appearance - ENT ENT exam: Present: mucous membranes moist - Neck Neck exam: Present: normal inspection, full ROM - Respiratory Respiratory exam: Present: normal lung sounds bilaterally. Absent: respiratory distress, wheezes, rales, rhonchi, stridor - Cardiovascular Cardiovascular Exam: Present: regular rate, normal rhythm, normal heart sounds. Absent: systolic murmur, diastolic murmur, rubs, gallop - GI/Abdominal GI/Abdominal exam: Present: soft, normal bowel sounds. Absent: distended, tenderness, guarding, rebound - Extremities Exam Extremities exam: Present: normal inspection - Neurological Exam Neurological exam: Present: alert, oriented X3 - Psychiatric Psychiatric exam: Present: normal affect, normal mood - Skin Skin exam: Present: warm, dry, intact, normal color. Absent: rash ED Course Vital Signs 03/07/21 08:38 Temperature 98.5 F Pulse Rate 95 H Respiratory 18 Rate Blood Pressure 134/66 O2 Sat by Pulse 98 Oximetry ED Medical Decision Making - Lab Data Result diagrams: 03/07/21 09:14 03/07/21 09:14 - EKG Data -: EKG Interpreted by Me EKG shows normal: sinus rhythm, axis, intervals, QRS complexes Rate: normal - EKG Data Interpretation: nonspecific ST-T wave saima 03/07/21 09:24 EKG interpreted by pa Rate [address] elevation normal axis normal intervals nonspecific T wave pattern - Radiology Data Radiology results: report reviewed - Medical Decision Making CBC was normal limits chemistry showed normal electrolytes slightly elevated glucose. Chest radiograph two view no acute findings according radiology impression. Suspect noncardiac chest pain: Although EGD normal I suspect GERD versus PVCs. Patient given referral to internal medicine physician. She is seeking a second medical opinion. Patient given transfer Critical care attestation.: If time is entered above; I have spent that time in minutes in the direct care of this critically ill patient, excluding procedure time. ED Disposition Clinical Impression: Chest pain Disposition: 01 HOME / SELF CARE / HOMELESS Is pt being admited?: No Does the pt Need Aspirin: No Condition: Stable Instructions: Nonspecific Chest Pain, Adult Referrals: VERONICA ALLEN MD [Staff Physician] - 3-5 Days Forms: Work/School Release Form(ED)
[2021-03-07 09:44] LABS: Blood Urea Nitrogen 10 mg/dL (7-17); Calcium 9.6 mg/dL (8.4-10.2); Hemolysis Index 21
[2021-03-07 09:45] LABS: BUN/Creatinine Ratio 25
--- NOTE | 2021-03-07 09:48 | XRay Report ---
XR chest routine 2V INDICATION / CLINICAL INFORMATION: Chest Pain. COMPARISON: 01/31/2020. FINDINGS: SUPPORT DEVICES: None. HEART /PULMONARY VASCULATURE: No significant abnormality. LUNGS / PLEURA: No significant pulmonary or pleural abnormality. No pneumothorax. ADDITIONAL FINDINGS: No significant additional findings. IMPRESSION: 1. No acute findings. Signer Name: Carlos Sanchez MD Signed: 03/07/2021 9:43 AM Workstation Name: [id number]
--- NOTE | 2021-03-12 14:17 | Electrocardiograph Report ---
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
== END 2021-03-07 12:04 | disposition home or self-care (01) ==
LOC: ED 08:23
DX: R07.9 Chest pain, unspecified (principal); E11.8 Type 2 diabetes mellitus with unspecified complications; Z86.73 Personal history of transient ischemic attack (TIA), and cerebral infarction without residual deficits; Z98.890 Other specified postprocedural states
CPT/HCPCS: 36415; 71046; 80048; 84484; 85025; 93005; 99283

== ENCOUNTER 2021-03-19 08:49 | Observation (INO) | payer OTHER ==
--- NOTE | 2021-03-19 09:17 | Consultation ---
History of Present Illness - Reason for Consult Consult date: 03/19/21 - History of Present Illness [facility] Consult Note # Demographics Consult Type: Acute Stroke Level 1 (0-4.5 hrs) Patient Location: Emergency Room First Name: Misty Last Name: Armani Date of : 1975 Age: 45 Gender: Female Facility: [facility] Time of Initial Page ( Time): 03/19/2021, 09:02 Time of Return Call ( Time): 03/19/2021, 09:03 # HPI History: 45yo woman who went to bed at 1130PM and was well. She awoke at 545AM to go to work and had left sided weakness and tingling. Associated Symptoms: headache swallowing problems no vision changes Quality: slurred speech # Scores Time of exam and NIHSS ( Time): 03/19/2021, 09:05 Level of Consciousness 1a: [0] = Alert; keenly responsive LOC Questions 1b: [0] = Answers both questions correctly LOC Commands 1c: [0] = Performs both tasks correctly Best Gaze 2: [0] = Normal Visual 3: [0] = No visual loss Facial Palsy 4: [0] = Normal symmetrical movements Motor Arm Left 5a: [1] = Drift Motor Arm Right 5b: [0] = No drift Motor Leg Left 6a: [0] = No drift Motor Leg Right 6b: [0] = No drift Limb Ataxia 7: [0] = Absent Sensory 8: [1] = Bxsq-[id number] sensory loss Best Language 9: [0] = No aphasia Dysarthria 10: [0] = Normal Extinction and Inattention 11: [0] = No abnormality NIHSS Total: 2 # Exam Vitals: vital signs reviewed # ROS Pulmonary: shortness of breath # PMH-FH-SH Past Medical History: Diabetes stroke Social History: non-smoker non-drinker Medications: aspirin # Assessment Impression: Ischemic Stroke (Acute) # Plan Thrombolytic/Intervention: NOT IV Thrombolysis or IA Intervention candidate Thrombolytic Exclusion: > 4.5 hours Intraarterial Exclusion: clinically consistent with small vessel disease Target Blood Pressure: SBP < 220 Labs: ESR lipid panel Imaging: (urgency: STAT): CT Angiogram Head and CT Angiogram Neck Imaging: (urgency: routine): MRI Brain without contrast Diagnostic Test: echo without bubble study Therapy/Evaluation: NPO until swallow evaluation PT/OT evaluation speech/swallow consultation Medication: aspirin 81 mg PLUS clopidogrel (Plavix) 75 mg for 21 days, then monotherapy therafter DVT Prophylaxis: SCD chemical DVT prophylaxis Other: permissive hypertension telemetry monitoring I have discussed my recommendations with the referring provider Disposition: admit Medications and Allergies Allergies Allergy/AdvReac Type Severity Reaction Status Date / Time No Known Allergies Allergy Verified 03/07/21 08:37 Home Medications Medication Instructions Recorded Confirmed Last Taken Type Naproxen 250 mg PO BID PRN #20 tablet 03/21/17 Unknown Rx HYDROcodone/APAP 7.5-325 [[place] 1 each PO Q6HR PRN #12 tablet 09/18/20 Unknown Rx 7.5/325] Ondansetron [Zofran ODT TAB] 4 mg PO Q8HR #21 tab.rapdis 09/18/20 Unknown Rx Results - Labs Labs: Abnormal lab results 03/19/21 Range/Units 08:57 POC Glucose 315 H (70-105) mg/dL
--- NOTE | 2021-03-19 09:29 | Cat Scan Report ---
CT HEAD WITHOUT CONTRAST INDICATION / CLINICAL INFORMATION: CODE STROKE CALL REPORT [phone] hx of stroke x2 tingl ing left sided weakness. TECHNIQUE: Axial imaging performed from the skull apex through the skull base without the use of cont rast. Sagittal and coronal reformatted images. All CT scans at this location are performed using CT dose reduction for ALARA by means of automated exposure control. COMPARISON: 10/01/2018 FINDINGS: CEREBRAL PARENCHYMA: No significant abnormality. No acute territorial infarct. HEMORRHAGE: None. EXTRA-AXIAL SPACES: Normal in size and morphology for the patient's age. VENTRICULAR SYSTEM: Normal in size and morphology for the patient's age. MIDLINE SHIFT OR HERNIATION: None. CEREBELLUM / BRAINSTEM: No significant abnormality. CALVARIUM: No significant abnormality. ORBITS: Normal as visualized. PARANASAL SINUSES / MASTOID AIR CELLS: Normal as visualized. SOFT TISSUES of HEAD: No significant abnormality. ADDITIONAL FINDINGS: None. IMPRESSION: No acute intracranial abnormality. CODE STROKE: Time of Communication (COAL EQUIPMENT OPERATOR/CDT): 0823 hours Licensed Practitioner Receiving Report: Dr. Yanes Signer Name: Codey Olguin Jr, MD Signed: 03/19/2021 9:24 AM Workstation Name: [id number]
--- NOTE | 2021-03-19 09:47 | Emergency Department Report ---
ED Neuro Deficit HPI - General Chief Complaint: Neuro Symptoms/Deficit Stated Complaint: LT SIDE TINGLING/WEAKNESS Time Seen by Provider: 03/19/21 09:00 Source: patient Mode of arrival: Ambulatory Limitations: No Limitations - History of Present Illness Initial Comments: 45-year-old female, history of diabetes, hypertension, previous CVA, presents to ED with left-sided weakness. Patient reports she woke up with the symptoms. Last known well time of 11:30 PM last night. Patient states with her previous CVA she had left-sided weakness, however, she went to physical therapy and and she only had a small amount of residual weakness. Patient states when she woke up this morning, her left arm and leg were significantly weaker than usual. Also reporting some numbness and tingling on the left side as well. She denies any facial droop or slurred speech. Patient is not on any blood thinners. -: This morning Location: left arm, left leg Presenting Symptoms: Present: Weak/Paralyzed One Side History of same: Yes Place: home Severity: mild Quality: weak, numb, tingling Improves With: none Worsens With: none Associated Symptoms: denies other symptoms Treatments Prior to Arrival: none - Related Data Home Medications: Previous Rx's Medication Instructions Recorded Last Taken Type Naproxen 250 mg PO BID PRN #20 tablet 03/21/17 Unknown Rx HYDROcodone/APAP 7.5-325 [[place] 1 each PO Q6HR PRN #12 tablet 09/18/20 Unknown Rx 7.5/325] Ondansetron [Zofran ODT TAB] 4 mg PO Q8HR #21 tab.rapdis 09/18/20 Unknown Rx Allergies/Adverse Reactions: Allergies Allergy/AdvReac Type Severity Reaction Status Date / Time No Known Allergies Allergy Verified 03/07/21 08:37 ED Review of Systems ROS: Stated complaint: LT SIDE TINGLING/WEAKNESS Other details as noted in HPI Comment: All other systems reviewed and negative Cardiovascular: denies: chest pain Neurological: as per HPI. denies: headache ED Past Medical Hx - Past Medical History Previous Medical History?: Yes Hx CVA: Yes (left-sided weakness) Hx Diabetes: Yes - Surgical History Past Surgical History?: Yes Hx Cholecystectomy: Yes Additional Surgical History: EGD - Social History Smoking Status: Never Smoker Substance Use Type: None - Medications Home Medications: Home Medications Medication Instructions Recorded Confirmed Last Taken Type Naproxen 250 mg PO BID PRN #20 tablet 03/21/17 Unknown Rx HYDROcodone/APAP 7.5-325 [[place] 1 each PO Q6HR PRN #12 tablet 09/18/20 Unknown Rx 7.5/325] Ondansetron [Zofran ODT TAB] 4 mg PO Q8HR #21 tab.rapdis 09/18/20 Unknown Rx ED Neuro Physical Exam - General Limitations: No Limitations General appearance: alert, in no apparent distress Suspected Stroke: Yes - Eye Eye exam: Present: normal appearance, EOMI - ENT ENT exam: Present: mucous membranes moist - Neck Neck exam: Present: normal inspection - Respiratory Respiratory exam: Present: normal lung sounds bilaterally. Absent: respiratory distress - Cardiovascular Cardiovascular Exam: Present: regular rate, normal rhythm - GI/Abdominal GI/Abdominal exam: Present: soft. Absent: distended, tenderness - Extremities Exam Extremities exam: Present: normal inspection - Neurological Exam Neurological exam: Present: alert, oriented X3 - NIHSS Assessment Interval: Baseline 1a. Level of Consciousness: alert/keenly responsive 1b. LOC Questions: answers both correctly 1c. LOC Commands: performs tasks correctly 2. Best Gaze: normal 3. Visual: no visual loss 4. Facial Palsy: normal symmetrical movement 5b. Motor Arm Right: no drift 5a. Motor Arm Left: drift 6a. Motor Leg Left: no drift 6b. Motor Leg Right: no drift 7. Limb Ataxia: absent 8. Sensory: mild/moderate sensory loss 9. Best Language: no aphasia 10. Dysarthria: normal 11. Extinction/Inattention: no abnormality Total Score: 2 Stroke Severity: Minor Stroke - Psychiatric Psychiatric exam: Present: normal affect, normal mood - Skin Skin exam: Present: warm, dry, intact, normal color ED Course Vital Signs 03/19/21 09:28 Temperature 98 F Pulse Rate 93 H Respiratory 16 Rate Blood Pressure 143/88 O2 Sat by Pulse 99 Oximetry - Consultations Consultation #1: 03/19/21 10:40 Acute care with teleneurologist, Dr. Brandon. Explained that we are still currently waiting for IV nurse as nurses have been unable to place IV for the patient CTA. Dr. Vaughan states CTA can be done while inpatient since very low suspicion for large vessel occlusion and with NIH score of 2. Spoke with hospitalist, relayed exam findings, CT head results, and plan for CTA. She will admit the patient. - Lab Data Result diagrams: 03/19/21 09:23 03/19/21 09:23 Lab Results 03/19/21 03/19/21 03/19/21 Range/Units 08:57 09:23 09:23 WBC 8.0 (4.5-11.0) K/mm3 RBC 4.14 (3.65-5.03) M/mm3 Hgb 13.5 (10.1-14.3) gm/dl Hct 39.2 (30.3-42.9) % MCV 95 (79-97) fl MCH 33 H (28-32) pg MCHC 34 (30-34) % RDW 12.7 L (13.2-15.2) % Plt Count 362 (140-440) K/mm3 Lymph % (Auto) 26.2 (13.4-35.0) % [place] % (Auto) 5.8 (0.0-7.3) % Eos % (Auto) 1.4 (0.0-4.3) % Baso % (Auto) 0.6 (0.0-1.8) % Lymph # (Auto) 2.1 (1.2-5.4) K/mm3 [place] # (Auto) 0.5 (0.0-0.8) K/mm3 Eos # (Auto) 0.1 (0.0-0.4) K/mm3 Baso # (Auto) 0.1 (0.0-0.1) K/mm3 Seg Neutrophils % 66.0 (40.0-70.0) % Seg Neutrophils # 5.3 (1.8-7.7) K/mm3 PT 12.4 (12.2-14.9) Sec. INR 0.88 (0.87-1.13) APTT 23.4 L (24.2-36.6) Sec. Thrombin Time 17.2 (15.1-19.6) Sec. Sodium (137-145) mmol/L Potassium (3.6-5.0) mmol/L Chloride (98-107) mmol/L Carbon Dioxide (22-30) mmol/L Anion Gap mmol/L BUN (7-17) mg/dL Creatinine (0.6-1.2) mg/dL Estimated GFR ml/min BUN/Creatinine Ratio % Glucose (65-100) mg/dL POC Glucose 315 H (70-105) mg/dL Calcium (8.4-10.2) mg/dL Total Creatine Kinase (30-135) units/L CK-MB (CK-2) (0.0-4.0) ng/mL CK-MB (CK-2) Rel Index (0-4) Troponin T (0.00-0.029) ng/mL 03/19/21 Range/Units 09:23 WBC (4.5-11.0) K/mm3 RBC (3.65-5.03) M/mm3 Hgb (10.1-14.3) gm/dl Hct (30.3-42.9) % MCV (79-97) fl MCH (28-32) pg MCHC (30-34) % RDW (13.2-15.2) % Plt Count (140-440) K/mm3 Lymph % (Auto) (13.4-35.0) % [place] % (Auto) (0.0-7.3) % Eos % (Auto) (0.0-4.3) % Baso % (Auto) (0.0-1.8) % Lymph # (Auto) (1.2-5.4) K/mm3 [place] # (Auto) (0.0-0.8) K/mm3 Eos # (Auto) (0.0-0.4) K/mm3 Baso # (Auto) (0.0-0.1) K/mm3 Seg Neutrophils % (40.0-70.0) % Seg Neutrophils # (1.8-7.7) K/mm3 PT (12.2-14.9) Sec. INR (0.87-1.13) APTT (24.2-36.6) Sec. Thrombin Time (15.1-19.6) Sec. Sodium 137 (137-145) mmol/L Potassium 4.4 (3.6-5.0) mmol/L Chloride 99.7 (98-107) mmol/L Carbon Dioxide 20 L (22-30) mmol/L Anion Gap 22 mmol/L BUN 12 (7-17) mg/dL Creatinine 0.7 (0.6-1.2) mg/dL Estimated GFR > 60 ml/min BUN/Creatinine Ratio 17 % Glucose 333 H (65-100) mg/dL POC Glucose (70-105) mg/dL Calcium 9.8 (8.4-10.2) mg/dL Total Creatine Kinase 63 (30-135) units/L CK-MB (CK-2) 1.6 (0.0-4.0) ng/mL CK-MB (CK-2) Rel Index 2.5 (0-4) Troponin T < 0.010 (0.00-0.029) ng/mL - EKG Data -: EKG Interpreted by Me EKG shows normal: sinus rhythm, axis, intervals, QRS complexes, ST-T waves Rate: normal Interpretation: no acute changes - Radiology Data Radiology results: report reviewed, image reviewed - Thrombolytic Inclusion/Exclusion Thrombolytic Exclusion Criteria: Symptom Onset > 3 Hours Critical care attestation.: If time is entered above; I have spent that time in minutes in the direct care of this critically ill patient, excluding procedure time. ED Disposition Clinical Impression: Left-sided weakness Disposition: ADMITTED INPATIENT Is pt being admited?: Yes Condition: Stable Referrals: JUAN KO MD [Primary Care Provider] - 3-5 Days Time of Disposition: 10:40
[2021-03-19 09:51] LABS: Basophils # (Auto) 0.1 K/mm3 (0.0-0.1); Basophils % (Auto) 0.6 % (0.0-1.8); Eosinophils # (Auto) 0.1 K/mm3 (0.0-0.4); Eosinophils % (Auto) 1.4 % (0.0-4.3); Hematocrit 39.2 % (30.3-42.9); Hemoglobin 13.5 gm/dl (10.1-14.3); Lymphocytes # (Auto) 2.1 K/mm3 (1.2-5.4); Lymphocytes % (Auto) 26.2 % (13.4-35.0); Mean Corpuscular HGB Conc 34 % (30-34); Mean Corpuscular Volume 95 fl (79-97); Monocytes # (Auto) 0.5 K/mm3 (0.0-0.8); Monocytes % (Auto) 5.8 % (0.0-7.3); Platelet Count 362 K/mm3 (140-440); Red Blood Count 4.14 M/mm3 (3.65-5.03); Red Cell Distribution Width 12.7 % (13.2-15.2)
[2021-03-19 10:19] LABS: INR 0.88 (0.87-1.13); Partial Thromboplastin Time 23.4 Sec. (24.2-36.6); Thrombin Time 17.2 Sec. (15.1-19.6)
[2021-03-19 10:20] LABS: Creatine Kinase MB 1.6 ng/mL (0.0-4.0)
[2021-03-19 10:22] LABS: Blood Urea Nitrogen 12 mg/dL (7-17); Calcium 9.8 mg/dL (8.4-10.2); Hemolysis Index 13
[2021-03-19 10:33] LABS: BUN/Creatinine Ratio 17
[2021-03-19] MEDS ORDERED: INSULIN REGULAR, HUMAN 100 UNITS/1 ML IV ONE (10:50)
[2021-03-19] MEDS ORDERED: HYDROcodone/ACETAMINOPHEN 5-325 MG TAB PO PRN (12:17)
[2021-03-19] MEDS ORDERED: ACETAMINOPHEN 325 MG TAB PO PRN (12:17)
[2021-03-19] MEDS ORDERED: ONDANSETRON 4 MG/2 ML INJ IV PRN (12:17)
[2021-03-19] MEDS ORDERED: MORPHINE 4 MG/1 ML INJ IV PRN (12:17)
[2021-03-19] MEDS ORDERED: DEXTROSE 50% IN WATER (25GM) 50 ML SYRINGE IV PRN (12:22)
--- NOTE | 2021-03-19 12:31 | Cat Scan Report ---
CT angio head INDICATION / CLINICAL INFORMATION: 45 years Female; CODE STROKE CALL REPORT [phone] Hx of stroke x 2 tingling left sided weakness. TECHNIQUE: Thin cut axial images obtained through the head during IV bolus contrast administration. S agittal, coronal, and 3 plane MIP reconstructions performed by the technologist. NASCET type criteria used evaluate stenoses. Automated exposure control utilized for radiation reduction purposes. COMPARISON: None available. FINDINGS: INTERNAL CAROTID ARTERIES: No significant narrowing appreciated. VERTEBROBASILAR SYSTEM: No significant narrowing appreciated. Right vertebral artery is markedly tomm[place] nant when compared with the left. The nondominant left vertebral artery largely terminates in the lef t PICA territory with a very small branch extending towards the basilar artery. DISTAL BRANCHES: Distal branches of the anterior, middle, and posterior cerebral arteries are fairly symmetric in appearance and number. ANEURYSM: None identified. ADDITIONAL FINDINGS: Poor dentition noted. Mild to moderate mucosal thickening seen in the maxillary antra-left greater than right. IMPRESSION: No significant narrowing appreciated on this CTA of the head. Signer Name: Osmin Doyle MD, III Signed: 03/19/2021 12:27 PM Workstation Name: [id number]
--- NOTE | 2021-03-19 12:36 | Cat Scan Report ---
. CT angio neck INDICATION / CLINICAL INFORMATION: 45 years Female; CODE STROKE CALL REPORT [phone] Hx of stroke x 2 tingling left sided weakness. TECHNIQUE: Thin cut axial images obtained through the head during IV bolus contrast administration. S agittal, coronal, and 3 plane MIP reconstructions performed by the technologist. NASCET type criteria used evaluate stenoses. All CT scans at this location are performed using CT dose reduction for ALAR A by means of automated exposure control. COMPARISON: None available. FINDINGS: ARCH: Normal aortic arch branching suggested. CAROTID ARTERIES: The visualized common and internal carotid arteries are widely patent. VERTEBRAL ARTERIES: Codominant vertebral system seen. No significant stenosis appreciated. ADDITIONAL FINDINGS: Mildly prominent, scattered lymph nodes are seen, which presumably reactive. Ple ase clinically correlate. Mild to moderate mucosal thickening seen in the left maxillary antrum. Mild on the right. Poor dentition noted. Periodontal disease seen in multiple locations. IMPRESSION: 1. No significant stenosis appreciated on this CTA of the neck. 2. Note, this combination of exams does not exclude ischemia. Follow-up with diffusion imaging by MRI , as clinically warranted. Signer Name: Osmin Doyle MD, III Signed: 03/19/2021 12:32 PM Workstation Name: [id number]
[2021-03-19] MEDS: INSULIN REGULAR, HUMAN 100 UNITS/1 ML SUB-Q SCH ×2 (13:35→18:52)
--- NOTE | 2021-03-19 15:28 | History and Physical Report ---
History of Present Illness Date of examination: 03/19/21 Date of admission: 03/19/21 10:42 Chief complaint: Weakness of left upper extremity and left lower extremity History of present illness: The patient is a 45-year-old female with past medical history of insulin- dependent diabetes (type II), hypertension, sinus tachycardia, prior CVA (2017; October 2020) who presented with left-sided weakness. The patient was last seen normal at 11:30 PM. The patient describes having weakness, tingling, and numbness of her left lower face, left upper extremity, and left lower extremity. Patient endorses similar symptoms associated with her prior strokes, and this led to her presenting in the ED. The patient endorses being compliant with her medications, and following with her PCP as scheduled. Patient denies any trauma. In the ED the patient was found to be hemodynamically stable. The patient presented outside of the window; therefore, patient was not a candidate for thrombolytics. The patient underwent CT head Noncon which was negative. The patient is being admitted for stroke work-up. Past History Past Medical History: diabetes, hypertension, hyperlipidemia, stroke (2017; October 2020) Past Surgical History: cholecystectomy Social history: lives with family, full code Family history: cancer, diabetes Medications and Allergies Allergies Allergy/AdvReac Type Severity Reaction Status Date / Time No Known Allergies Allergy Verified 03/07/21 08:37 Home Medications Medication Instructions Recorded Confirmed Last Taken Type Aspirin EC [Halfprin EC] 81 mg PO QDAY 03/19/21 03/19/21 Unknown History Atorvastatin Calcium [Lipitor] 80 mg PO QHS 03/19/21 03/19/21 Unknown History DULoxetine [Cymbalta] 1 cap PO HS PRN 03/19/21 03/19/21 Unknown History Dapagliflozin Propanediol [Farxiga] 10 mg PO QDAY 03/19/21 03/19/21 Unknown History Docusate Sodium [Colace CAP] 2 cap PO QDAY 03/19/21 03/19/21 Unknown History Insulin Aspart [Novolog Flexpen] 5 units SQ TID 03/19/21 03/19/21 Unknown History Lisinopril/Hydrochlorothiazide 1 tab PO QDAY 03/19/21 03/19/21 Unknown History [Zestoretic 20-12.5 mg] Metformin HCl [metFORMIN] 1,000 mg PO BID 03/19/21 03/19/21 Unknown History Metoprolol [Lopressor TAB] 50 mg PO BID 03/19/21 03/19/21 Unknown History Mv-Mins 85/Iron/FA/Dha/L.casei 1 cap PO QDAY 03/19/21 03/19/21 Unknown History [Multi Pro Capsule] Topiramate [Topamax] 1 tab PO QDAY 03/19/21 03/19/21 Unknown History Active Meds: Active Medications Acetaminophen (Acetaminophen 325 Mg Tab) 650 mg PO Q4H PRN PRN Reason: Pain MILD(1-3)/Fever >100.5/LOERA Hydrocodone Bitart/Acetaminophen (Hydrocodone/Acetaminophen 5-325 Mg Tab) 2 each PO Q6H PRN PRN Reason: Pain, Moderate (4-6) Aspirin (Aspirin 81 Mg Tab Chew) 81 mg PO QDAY ISAIAH Clopidogrel Bisulfate (Clopidogrel 75 Mg Tab) 75 mg PO QDAY ISAIAH Dextrose (Dextrose 50% In Water (25gm) 50 Ml Syringe) 50 ml IV Q30MIN PRN; Protocol PRN Reason: Hypoglycemia Insulin Glargine (Insulin Glargine 100 Units/Ml) 15 units SUB-Q QHS ISAIAH Insulin Human Regular (Insulin Regular, Human 100 Units/1 Ml) 0 units SUB-Q Q6H ISAIAH; Protocol Last Admin: 03/19/21 13:35 Dose: 2 units Documented by: Morphine Sulfate (Morphine 4 Mg/1 Ml Inj) 4 mg IV Q4H PRN PRN Reason: Pain , Severe (7-10) Ondansetron HCl (Ondansetron 4 Mg/2 Ml Inj) 4 mg IV Q8H PRN PRN Reason: Nausea And Vomiting Sodium Chloride (Sodium Chloride 0.9% 10 Ml Flush Syringe) 10 ml IV BID ISAIAH Sodium Chloride (Sodium Chloride 0.9% 10 Ml Flush Syringe) 10 ml IV PRN PRN PRN Reason: LINE FLUSH Review of Systems All systems: negative Neurological: weakness, numbness, tingling Exam - Constitutional Vitals: Temp Pulse Resp BP Pulse Ox 98 F 74 16 127/85 95 03/19/21 09:28 03/19/21 13:42 03/19/21 13:42 03/19/21 13:42 03/19/21 13:42 General appearance: Present: no acute distress, well-nourished, obese - EENT Eyes: Present: PERRL, EOM intact ENT: hearing intact, clear oral mucosa, dentition normal - Neck Neck: Present: supple, normal ROM - Respiratory Respiratory effort: normal - Cardiovascular Heart rate: 102 Rhythm: regular Heart Sounds: Present: S1 & S2 - Extremities Extremities: no ischemia, pulses intact, pulses symmetrical, No edema, normal temperature, normal color Peripheral Pulses: within normal limits - Abdominal General gastrointestinal: Present: soft, non-tender, non-distended, normal bowel sounds Female genitourinary: Present: deferred - Rectal Rectal Exam: deferred - Integumentary Integumentary: Present: clear, warm, dry - Musculoskeletal Musculoskeletal: right sided weakness (3/5 strength of LUE and 4/5 strength of LLE) - Psychiatric Psychiatric: appropriate mood/affect, intact judgment & insight, memory intact, cooperative - Neurologic Neurologic: CNII-XII intact, moves all extremities - Allied Health Allied health notes reviewed: nursing HEART Score - HEART Score Troponin: Troponin T < 0.010 ng/mL (0.00-0.029) 03/19/21 09:23 Results - Labs CBC & Chem 7: 03/19/21 09:23 03/19/21 09:23 Labs: Laboratory Last Values WBC 8.0 K/mm3 (4.5-11.0) 03/19/21 09:23 RBC 4.14 M/mm3 (3.65-5.03) 03/19/21 09:23 Hgb 13.5 gm/dl (10.1-14.3) 03/19/21 09:23 Hct 39.2 % (30.3-42.9) 03/19/21 09:23 MCV 95 fl (79-97) 03/19/21 09:23 MCH 33 pg (28-32) H 03/19/21 09:23 MCHC 34 % (30-34) 03/19/21 09:23 RDW 12.7 % (13.2-15.2) L 03/19/21 09:23 Plt Count 362 K/mm3 (140-440) 03/19/21 09:23 Lymph % (Auto) 26.2 % (13.4-35.0) 03/19/21 09:23 [place] % (Auto) 5.8 % (0.0-7.3) 03/19/21 09:23 Eos % (Auto) 1.4 % (0.0-4.3) 03/19/21 09:23 Baso % (Auto) 0.6 % (0.0-1.8) 03/19/21 09:23 Lymph # (Auto) 2.1 K/mm3 (1.2-5.4) 03/19/21 09:23 [place] # (Auto) 0.5 K/mm3 (0.0-0.8) 03/19/21 09:23 Eos # (Auto) 0.1 K/mm3 (0.0-0.4) 03/19/21 09:23 Baso # (Auto) 0.1 K/mm3 (0.0-0.1) 03/19/21 09:23 Seg Neutrophils % 66.0 % (40.0-70.0) 03/19/21 09:23 Seg Neutrophils # 5.3 K/mm3 (1.8-7.7) 03/19/21 09:23 PT 12.4 Sec. (12.2-14.9) 03/19/21 09:23 INR 0.88 (0.87-1.13) 03/19/21 09:23 APTT 23.4 Sec. (24.2-36.6) L 03/19/21 09:23 Thrombin Time 17.2 Sec. (15.1-19.6) 03/19/21 09:23 Sodium 137 mmol/L (137-145) 03/19/21 09:23 Potassium 4.4 mmol/L (3.6-5.0) 03/19/21 09:23 Chloride 99.7 mmol/L (98-107) 03/19/21 09:23 Carbon Dioxide 20 mmol/L (22-30) L 03/19/21 09:23 Anion Gap 22 mmol/L 03/19/21 09:23 BUN 12 mg/dL (7-17) 03/19/21 09:23 Creatinine 0.7 mg/dL (0.6-1.2) 03/19/21 09:23 Estimated GFR > 60 ml/min 03/19/21 09:23 BUN/Creatinine Ratio 17 % 03/19/21 09:23 Glucose 333 mg/dL (65-100) H 03/19/21 09:23 POC Glucose 198 mg/dL (70-105) H 03/19/21 13:32 Hemoglobin A1c 10.7 % (4-6) H 03/19/21 09:23 Calcium 9.8 mg/dL (8.4-10.2) 03/19/21 09:23 Total Creatine Kinase 63 units/L (30-135) 03/19/21 09:23 CK-MB (CK-2) 1.6 ng/mL (0.0-4.0) 03/19/21 09:23 CK-MB (CK-2) Rel Index 2.5 (0-4) 03/19/21 09:23 Troponin T < 0.010 ng/mL (0.00-0.029) 03/19/21 09:23 Assessment and Plan Assessment and plan: The patient is a 45-year-old female with past medical history of insulin- dependent diabetes (type II), hypertension, sinus tachycardia, prior CVA (2017; October 2020) who presented with left-sided weakness being managed for stroke work- up. #Possible stroke #Possible TIA -Patient currently hemodynamically stable -CT head Noncon and CTA head/neck negative. Pending MRI brain without. -Neurology consulted; appreciate recs -Starting ASA 81 mg and Plavix 75 mg daily for 21 days; afterwards, patient will be discharged with Plavix as monotherapy. Given patient's recurrent strokes while on aspirin, Plavix as monotherapy would be appropriate. -Continue atorvastatin 40 mg daily -Allowing permissive hypertension in the setting of possible stroke. -Pending TTE with bubble, hemoglobin A1c, lipid panel. -Speech therapy not ordered due to lack of dysarthria and low clinical suspicion for difficulty with swallowing. -Physical therapy ordered; appreciate recs -If MRI brain without con is negative, patient will likely be discharged on 03/20/2021 #Hypertension -Currently holding home antihypertensives to allow permissive hypertension -Home medications: LisinoprilHCTZ 20-12.5 mg daily, metoprolol tartrate 50 mg twice daily #Insulin-dependent diabetes -Hemoglobin A1c 10.8 -Home medications: Metformin 1000 twice daily and Farxiga 10 mg daily -Starting Lantus 15 units twice daily with moderate SSI. Holding metformin in the setting of recent contrast administration. -Glucose checks before meals. Continue to monitor # Hyperlipidemia -Continue home atorvastatin 40 mg daily -Pending lipid profile #Major depressive disorder -Continue home duloxetine 30 mg daily #Migraines -Hold home topiramate 100 mg twice daily #Abdominal spasms -Continue home dicyclomine 20 mg 3 times daily #DVT prophylaxis -Starting SCDs Advance Directives: No VTE prophylaxis?: Mechanical Contraindication Mechanical VTE Prophylaxis: Contraindicated Reason for no VTE Prophylaxis: Medical contraindication Plan of care discussed with patient/family: Yes
--- NOTE | 2021-03-19 16:34 | Magnetic Resonance Report ---
MRI BRAIN WITHOUT CONTRAST INDICATION / CLINICAL INFORMATION: Assess for possible stroke. TECHNIQUE: Multiplanar, multisequence MR images of the brain were obtained. COMPARISON: Head CT done earlier today FINDINGS: BRAIN / INTRACRANIAL CONTENTS: No acute ischemia, acute hemorrhage, mass effect, midline shift, or hy drocephalus. No chronic infarct or significant atrophy. No significant demyelinating changes. CRANIOCERVICAL JUNCTION: No significant abnormality. VASCULAR FLOW-VOIDS: No significant abnormality. ORBITS: No significant abnormality of visualized orbits. SINUSES / MASTOIDS: No significant abnormality of visualized sinuses and mastoid air cells. ADDITIONAL FINDINGS: None. IMPRESSION: 1. No evidence of acute infarct or other acute abnormality. Signer Name: Quoc Matamoros MD Signed: 03/19/2021 4:29 PM Workstation Name: [id number]
[2021-03-19] MEDS: DULoxetine 30 MG CAP PO SCH (16:52)
[2021-03-19] MEDS ORDERED: INSULIN GLARGINE 100 UNITS/ML SUB-Q ONE (17:00)
[2021-03-19] MEDS: DICYCLOMINE 20 MG TAB PO SCH (21:45)
[2021-03-20] MEDS: INSULIN REGULAR, HUMAN 100 UNITS/1 ML SUB-Q SCH ×3 (01:10→12:30)
[2021-03-20 05:20] LABS: Basophils # (Auto) 0.1 K/mm3 (0.0-0.1); Basophils % (Auto) 0.9 % (0.0-1.8); Eosinophils # (Auto) 0.1 K/mm3 (0.0-0.4); Eosinophils % (Auto) 0.9 % (0.0-4.3); Hematocrit 37.1 % (30.3-42.9); Hemoglobin 12.8 gm/dl (10.1-14.3); Lymphocytes # (Auto) 1.8 K/mm3 (1.2-5.4); Lymphocytes % (Auto) 23.9 % (13.4-35.0); Mean Corpuscular HGB Conc 35 % (30-34); Mean Corpuscular Volume 96 fl (79-97); Monocytes # (Auto) 0.4 K/mm3 (0.0-0.8); Monocytes % (Auto) 5.7 % (0.0-7.3); Platelet Count 347 K/mm3 (140-440); Red Blood Count 3.88 M/mm3 (3.65-5.03); Red Cell Distribution Width 12.7 % (13.2-15.2)
[2021-03-20 05:39] LABS: Blood Urea Nitrogen 11 mg/dL (7-17); Calcium 9.3 mg/dL (8.4-10.2); HDL Cholesterol 51 mg/dL (40-59); Hemolysis Index 7; LDL Cholesterol,Direct 150 mg/dL (50-130)
[2021-03-20 05:42] LABS: BUN/Creatinine Ratio 22
[2021-03-20] MEDS: DICYCLOMINE 20 MG TAB PO SCH ×2 (07:51→13:31)
[2021-03-20] MEDS ORDERED: INSULIN GLARGINE 100 UNITS/ML SUB-Q SCH (08:00)
[2021-03-20] MEDS: DULoxetine 30 MG CAP PO SCH (09:34)
[2021-03-20] MEDS ORDERED: ASPIRIN 81 MG TAB CHEW PO SCH (10:00)
[2021-03-20] MEDS ORDERED: CLOPIDOGREL 75 MG TAB PO SCH (10:00)
--- NOTE | 2021-03-20 10:34 | Electrocardiograph Report ---
[facility] Test Date: 2021-03-19 Test Time: 09:58:52 Pat Name: PAULINE ALATORRE Department: Room: [facility] Gender: F Oil Dispatcher: CHELI : 1975 Requested By: MITCH HIDALGO Order Number: [id number] Reading MD: Mina Saucedo Measurements Intervals [place] Rate: 91 P: 23 [place]: 170 QRS: -10 QRSD: 86 T: -9 QT: 335 QTc: 411 Interpretive Statements Sinus rhythm Low voltage, precordial leads Anterior Q waves, possibly due to LVH, vs ASMI Compared to ECG 03/07/2021 08:31:20 Left ventricular hypertrophy now present Q waves now present Electronically Signed On 03-20-2021 10:33:44 EDT by Mina Saucedo
--- NOTE | 2021-03-20 13:04 | Discharge Summary ---
Providers - Providers Date of Admission: 03/19/21 10:42 Date of discharge: 03/20/21 Attending physician: ABRAM TALBOT MD 03/19/21 12:20 Physical Therapy Evaluation and Treat [CONS] Routine Comment: Reason For Exam: Concern for stroke; L-sided weakness Primary care physician: JUAN KO Hospitalization Reason for admission: Left-sided weakness Condition: Stable Hospital course: 45-year-old female with history of type 2 diabetes, hypertension and prior CVA who presented with left-sided weakness. The left-sided weakness was typical of her strokes in the past. TPA was not given due to presenting outside window. Noncontrasted CT head and CTA head/neck was negative. She was admitted for stroke work-up. MRI was also negative for acute infarct or abnormality. Her symptoms resolved and she was discharged home. Disposition: 01 HOME / SELF CARE / HOMELESS Final Discharge Diagnosis (Prints w/discharge instructions): Acute neurological deficit Time spent for discharge: 20 minutes Core Measure Documentation - Palliative Care Palliative Care/ Comfort Measures: Not Applicable - Core Measures Any of the following diagnoses?: none Exam - Physical Exam Narrative exam: GENERAL: Well-developed well-nourished. Sitting on the side of the bed in no acute distress. CHEST/LUNGS: CTAB on room air HEART/CARDIOVASCULAR: RRR. No murmur, rubs or gallops appreciated. ABDOMEN: +BS. NT/ND. NEURO: No focal motor deficit. Follows all commands and is ambulatory. MUSCULOSKELETAL: No joint effusion EXTREMITIES: No cyanosis, clubbing or edema. PSYCH: Cooperative. - Constitutional Vitals: Temp Pulse Resp BP Pulse Ox 98 F 85 16 121/75 100 03/19/21 09:28 03/20/21 07:52 03/20/21 07:52 03/20/21 07:52 03/20/21 05:15 Plan Activity: advance as tolerated Diet: low salt Care Plan Goals: Follow-up with your pulmonary appointment. Follow-up with cardiology for cardiac monitoring. Continue home medications and follow-up with primary care. Please take aspirin 81 mg and Plavix 75 mg for 21 days. After continue to take aspirin daily. Assessment: L sided weakness improved. Echo reviewed from outside hospital with negative bubble study. CT head and MRI were negative for acute abnormality. CT angio of head and neck was also negative for significant stenosis. Patient reports having Holter monitor outpatient in the past. Recommended to follow-up with PCP, may need another monitor. Follow up with: JUAN KO MD [Primary Care Provider] - 3-5 Days Forms: Work/School Release Form(ED) Prescriptions: Aspirin EC [Halfprin EC] 81 mg PO QDAY 30 Days #30 tab Clopidogrel [Plavix] 75 mg PO QDAY 20 Days #20 tablet
[2021-03-20 17:34] VITALS: BP 130/74
== END 2021-03-20 18:21 | disposition home or self-care (01) ==
LOC: ED 08:49 → 4A 10:42
PROVIDERS: ADMIT Student in an Organized Health Care Education/Training Program; ATTEND Student in an Organized Health Care Education/Training Program
DX: G45.9 Transient cerebral ischemic attack, unspecified (principal); I10 Essential (primary) hypertension; E11.9 Type 2 diabetes mellitus without complications; R53.1 Weakness; E78.5 Hyperlipidemia, unspecified; F32.9 Major depressive disorder, single episode, unspecified; G43.909 Migraine, unspecified, not intractable, without status migrainosus; R25.2 Cramp and spasm; R29.702 NIHSS score 2; Z86.73 Personal history of transient ischemic attack (TIA), and cerebral infarction without residual deficits; Z90.49 Acquired absence of other specified parts of digestive tract; Z79.82 Long term (current) use of aspirin; Z79.4 Long term (current) use of insulin; Z79.01 Long term (current) use of anticoagulants
CPT/HCPCS: 36415; 70450; 70496; 70498; 70551; 80048; 80061; 82550; 82553; 82962; 83036; 83735; 84100; 84484; 85025; 85610; 85670; 85730; 93005; 96372; 96374; 97162; 99285; G0378; Q9967; J1815

== ENCOUNTER 2021-06-20 14:11 | Emergency (ER) | payer SELFPAY ==
[2021-06-20 14:39] VITALS: BP 152/86
[2021-06-20] MEDS ORDERED: BUTALB/ACETAMINOPHEN/CAFFEINE TAB PO STA (15:07)
[2021-06-20] MEDS ORDERED: ACETAMINOPHEN 325 MG TAB PO ONE (15:07)
--- NOTE | 2021-06-20 15:35 | XRay Report ---
CHEST 2 VIEWS INDICATION / CLINICAL INFORMATION: chest pain. COMPARISON: 2 views of the chest from 03/07/2021. FINDINGS: SUPPORT DEVICES: None. HEART / MEDIASTINUM: No significant abnormality. LUNGS / PLEURA: No significant pulmonary abnormality. No significant pleural effusion. No pneumothora x. ADDITIONAL FINDINGS: No significant additional findings. IMPRESSION: 1. No acute abnormality of the chest. Signer Name: John Braun MD Signed: 06/20/2021 3:30 PM Workstation Name: [id number]
[2021-06-20 15:49] LABS: Basophils # (Auto) 0.1 K/mm3 (0.0-0.1); Basophils % (Auto) 0.7 % (0.0-1.8); Eosinophils # (Auto) 0.1 K/mm3 (0.0-0.4); Eosinophils % (Auto) 0.8 % (0.0-4.3); Hemoglobin 13.4 gm/dl (10.1-14.3); Lymphocytes # (Auto) 1.4 K/mm3 (1.2-5.4); Lymphocytes % (Auto) 18.5 % (13.4-35.0); Mean Corpuscular HGB Conc 32 % (30-34); Mean Corpuscular Volume 96 fl (79-97); Monocytes # (Auto) 0.5 K/mm3 (0.0-0.8); Monocytes % (Auto) 6.4 % (0.0-7.3); Platelet Count 412 K/mm3 (140-440); Red Cell Distribution Width 12.8 % (13.2-15.2)
--- NOTE | 2021-06-20 15:49 | Cat Scan Report ---
CT head/brain wo con INDICATION: headache, hx of stroke. TECHNIQUE: Routine CT head. All CT scans at this location are performed using CT dose reduction for [place] by means of automated exposure control. COMPARISON: 03/19/2021 brain MRI FINDINGS: Intracranial: Beasley-white matter differentiation is maintained. No intracranial hemorrhage. No extra a xial collection. No hydrocephalus. No herniation. Sinuses: Mild mucosal thickening in maxillary sinuses. Mastoid air cells are reported.. Orbits: Globes are intact. Calvarium: No acute fracture. IMPRESSION: 1. No acute intracranial abnormality. Signer Name: John Hauser MD Signed: 06/20/2021 3:45 PM Workstation Name: [id number]
[2021-06-20 16:05] LABS: Alanine Aminotransferase 14 units/L (7-56); Albumin 4.1 g/dL (3.9-5); Blood Urea Nitrogen 13 mg/dL (7-17); Calcium 9.9 mg/dL (8.4-10.2); Hemolysis Index 4
[2021-06-20 16:17] LABS: BUN/Creatinine Ratio 26
[2021-06-20] MEDS ORDERED: SODIUM CHLORIDE 0.9% 1000 ML 1,000 ML IV ONE (16:21)
--- NOTE | 2021-06-20 16:59 | Emergency Department Report ---
ED General Adult HPI - General Chief complaint: Headache Stated complaint: HEAD PAIN/DIZZINESS Time Seen by Provider: 06/20/21 15:06 Source: patient Mode of arrival: Ambulatory Limitations: No Limitations - History of Present Illness Initial comments: 46-year-old -[place] female patient presents with complaints of left- sided headache and bilateral neck pain x3 days. She has history of hypertension, diabetes, CVA in 2018, and a recent TIA03/29 last year. Patient also reports a history of migraines and takes topiramate for this. She is also following with neurology and has an appointment scheduled for 06/26/2021. Patient states she has had multiple MRIs and CTs of her head performed without any abnormal findings. The pain radiates down her neck and into her left arm per patient. She denies any chest pain and states intermittent shortness of breath for approximately 3 to 4 months. Patient states she has been following with her PCP regarding this and has had an echocardiogram performed and many other tests to rule out heart failure and other causes. No hemoptysis, leg pain/swelling, recent long travel, history of DVT/PE/cancer, or hormone use per patient. She also reports that she chronically has tachycardia that she also f ollows with cardiology for. Patient is on Plavix. She states she denies any numbness/tingling/weakness in her limbs, difficulty with speech/ambulation, dizziness, confusion, or memory loss. Severity scale (0 -10): 9 - Related Data Home Medications Medication Instructions Recorded Confirmed Last Taken Atorvastatin Calcium [Lipitor] 80 mg PO QHS 03/19/21 03/19/21 Unknown DULoxetine [Cymbalta] 1 cap PO HS PRN 03/19/21 03/19/21 Unknown Dapagliflozin Propanediol [Farxiga] 10 mg PO QDAY 03/19/21 03/19/21 Unknown Docusate Sodium [Colace CAP] 2 cap PO QDAY 03/19/21 03/19/21 Unknown Insulin Aspart [Novolog Flexpen] 5 units SQ TID 03/19/21 03/19/21 Unknown Lisinopril/Hydrochlorothiazide 1 tab PO QDAY 03/19/21 03/19/21 Unknown [Zestoretic 20-12.5 mg] Metformin HCl [metFORMIN] 1,000 mg PO BID 03/19/21 03/19/21 Unknown Metoprolol [Lopressor TAB] 50 mg PO BID 03/19/21 03/19/21 Unknown Mv-Mins 85/Iron/FA/Dha/L.casei 1 cap PO QDAY 03/19/21 03/19/21 Unknown [Multi Pro Capsule] Topiramate [Topamax] 1 tab PO QDAY 03/19/21 03/19/21 Unknown Previous Rx's Medication Instructions Recorded Last Taken Type Aspirin EC [Halfprin EC] 81 mg PO QDAY 30 Days #30 tab 03/20/21 Unknown Rx Clopidogrel [Plavix] 75 mg PO QDAY 20 Days #20 tablet 03/20/21 Unknown Rx Amoxicillin/Potassium Clav 1 each PO BID 7 Days #14 tab 06/20/21 Unknown Rx [Augmentin 875-125 Tablet] Butalb/Acetamin/Caff 50-325-40 1 tab PO Q8HR PRN #12 tablet 06/20/21 Unknown Rx [Fioricet 50-325-40] Loratadine 10 mg PO QDAY 10 Days #10 tab 06/20/21 Unknown Rx Allergies Allergy/AdvReac Type Severity Reaction Status Date / Time No Known Allergies Allergy Verified 06/20/21 14:38 ED Review of Systems ROS: Stated complaint: HEAD PAIN/DIZZINESS Other details as noted in HPI Constitutional: denies: chills, diaphoresis, fever, malaise Respiratory: see HPI. denies: cough Cardiovascular: as per HPI. denies: chest pain Gastrointestinal: denies: abdominal pain, nausea, vomiting Neurological: headache. denies: numbness, paresthesias, confusion, abnormal gait ED Past Medical Hx - Past Medical History Hx CVA: Yes (left-sided weakness) Hx Diabetes: Yes - Surgical History Hx Cholecystectomy: Yes Additional Surgical History: EGD - Social History Smoking Status: Never Smoker Substance Use Type: None - Medications Home Medications: Home Medications Medication Instructions Recorded Confirmed Last Taken Type Atorvastatin Calcium [Lipitor] 80 mg PO QHS 03/19/21 03/19/21 Unknown History DULoxetine [Cymbalta] 1 cap PO HS PRN 03/19/21 03/19/21 Unknown History Dapagliflozin Propanediol [Farxiga] 10 mg PO QDAY 03/19/21 03/19/21 Unknown History Docusate Sodium [Colace CAP] 2 cap PO QDAY 03/19/21 03/19/21 Unknown History Insulin Aspart [Novolog Flexpen] 5 units SQ TID 03/19/21 03/19/21 Unknown History Lisinopril/Hydrochlorothiazide 1 tab PO QDAY 03/19/21 03/19/21 Unknown History [Zestoretic 20-12.5 mg] Metformin HCl [metFORMIN] 1,000 mg PO BID 03/19/21 03/19/21 Unknown History Metoprolol [Lopressor TAB] 50 mg PO BID 03/19/21 03/19/21 Unknown History Mv-Mins 85/Iron/FA/Dha/L.casei 1 cap PO QDAY 03/19/21 03/19/21 Unknown History [Multi Pro Capsule] Topiramate [Topamax] 1 tab PO QDAY 03/19/21 03/19/21 Unknown History Aspirin EC [Halfprin EC] 81 mg PO QDAY 30 Days #30 tab 03/20/21 Unknown Rx Clopidogrel [Plavix] 75 mg PO QDAY 20 Days #20 tablet 03/20/21 Unknown Rx Amoxicillin/Potassium Clav 1 each PO BID 7 Days #14 tab 06/20/21 Unknown Rx [Augmentin 875-125 Tablet] Butalb/Acetamin/Caff 50-325-40 1 tab PO Q8HR PRN #12 tablet 06/20/21 Unknown Rx [Fioricet 50-325-40] Loratadine 10 mg PO QDAY 10 Days #10 tab 06/20/21 Unknown Rx ED Physical Exam - General Limitations: No Limitations General appearance: alert, in no apparent distress, obese - Head Head exam: Present: atraumatic, normocephalic - Eye Eye exam: Present: normal appearance, PERRL, EOMI. Absent: scleral icterus - Neck Neck exam: Present: tenderness (Tenderness to palpation noted bilaterally to trapezius muscles without vertebral tenderness noted), full ROM. Absent: meningismus, other (Negative Brudzinski and Kernig sign) - Expanded Neck Exam Expanded Neck exam: Absent: midline deformity - Respiratory Respiratory exam: Present: normal lung sounds bilaterally. Absent: respiratory distress - Cardiovascular Cardiovascular Exam: Present: regular rate, normal rhythm - GI/Abdominal GI/Abdominal exam: Absent: tenderness - Extremities Exam Extremities exam: Present: full ROM. Absent: calf tenderness - Back Exam Back exam: Present: normal inspection, full ROM - Neurological Exam Neurological exam: Present: alert, oriented X3, CN II-XII intact, normal gait. Absent: motor sensory deficit - Expanded Neurological Exam Expanded Cerebellar function: Finger to Nose: Normal, Heel to Macario: Normal, Romberg: Normal Sensory exam: Upper Extremity Light Touch: Normal, Lower Extremity Light Touch: Normal Motor strength exam: RUE: 4, LUE: 4, RLE: 4, LLE: 4 Best Eye Response (Mary): (4) open spontaneously Best Motor Response (Mary): (6) obeys commands Best Verbal Response (Mary): (5) oriented [place] Total: 15 - Psychiatric Psychiatric exam: Present: normal affect, normal mood - Skin Skin exam: Present: warm, dry, intact, normal color. Absent: rash ED Course Vital Signs 06/20/21 06/20/21 14:35 14:37 Temperature 99.0 F 99.0 F Pulse Rate 112 H Respiratory 15 Rate Blood Pressure 152/86 [Right] O2 Sat by Pulse 99 Oximetry ED Medical Decision Making - Lab Data Result diagrams: 06/20/21 15:06 06/20/21 15:06 Lab Results 06/20/21 06/20/21 Range/Units 15:06 15:06 WBC 7.6 (4.5-11.0) K/mm3 RBC 4.40 (3.65-5.03) M/mm3 Hgb 13.4 (10.1-14.3) gm/dl Hct 42.0 (30.3-42.9) % MCV 96 (79-97) fl MCH 31 (28-32) pg MCHC 32 (30-34) % RDW 12.8 L (13.2-15.2) % Plt Count 412 (140-440) K/mm3 Lymph % (Auto) 18.5 (13.4-35.0) % [place] % (Auto) 6.4 (0.0-7.3) % Eos % (Auto) 0.8 (0.0-4.3) % Baso % (Auto) 0.7 (0.0-1.8) % Lymph # (Auto) 1.4 (1.2-5.4) K/mm3 [place] # (Auto) 0.5 (0.0-0.8) K/mm3 Eos # (Auto) 0.1 (0.0-0.4) K/mm3 Baso # (Auto) 0.1 (0.0-0.1) K/mm3 Seg Neutrophils % 73.6 H (40.0-70.0) % Seg Neutrophils # 5.6 (1.8-7.7) K/mm3 Sodium 136 L (137-145) mmol/L Potassium 4.5 (3.6-5.0) mmol/L Chloride 99.3 (98-107) mmol/L Carbon Dioxide 20 L (22-30) mmol/L Anion Gap 21 mmol/L BUN 13 (7-17) mg/dL Creatinine 0.5 L (0.6-1.2) mg/dL Estimated GFR > 60 ml/min BUN/Creatinine Ratio 26 % Glucose 181 H (65-100) mg/dL Calcium 9.9 (8.4-10.2) mg/dL Total Bilirubin 0.70 (0.1-1.2) mg/dL AST 11 (5-40) units/L ALT 14 (7-56) units/L Alkaline Phosphatase 99 (35-129) units/L Troponin T < 0.010 (0.00-0.029) ng/mL Total Protein 8.1 (6.3-8.2) g/dL Albumin 4.1 (3.9-5) g/dL Albumin/Globulin Ratio 1.0 % - Radiology Data Radiology results: report reviewed CHEST 2 VIEWS INDICATION / CLINICAL INFORMATION: chest pain. COMPARISON: 2 views of the chest from 03/07/2021. FINDINGS: SUPPORT DEVICES: None. HEART / MEDIASTINUM: No significant abnormality. LUNGS / PLEURA: No significant pulmonary abnormality. No significant pleural effusion. No pneumothorax. ADDITIONAL FINDINGS: No significant additional findings. IMPRESSION: 1. No acute abnormality of the chest. CT head/brain wo con INDICATION: headache, hx of stroke. TECHNIQUE: Routine CT head. All CT scans at this location are performed using CT dose reduction for [place] by means of automated exposure control. COMPARISON: 03/19/2021 brain MRI FINDINGS: Intracranial: Beasley-white matter differentiation is maintained. No intracranial hemorrhage. No extra axial collection. No hydrocephalus. No herniation. Sinuses: Mild mucosal thickening in maxillary sinuses. Mastoid air cells are reported.. Orbits: Globes are intact. Calvarium: No acute fracture. IMPRESSION: 1. No acute intracranial abnormality. - Medical Decision Making 46-year-old -[place] female patient presents with complaints of left- sided headache and bilateral neck pain x3 days. She has history of hypertension, diabetes, CVA in 2018, and a recent TIA03/29 last year. Patient also reports a history of migraines and takes topiramate for this. She is also following with neurology and has an appointment scheduled for 06/26/2021. Patient states she has had multiple MRIs and CTs of her head performed without any abnormal findings. The pain radiates down her neck and into her left arm per patient. She denies any chest pain and states intermittent shortness of breath for approximately 3 to 4 months. Patient states she has been following with her PCP regarding this and has had an echocardiogram performed and many oth er tests to rule out heart failure and other causes. No hemoptysis, leg pain/swelling, recent long travel, history of DVT/PE/cancer, or hormone use per patient. She also reports that she chronically has tachycardia that she also follows with cardiology for. Patient is on Plavix. She states she denies any numbness/tingling/weakness in her limbs, difficulty with speech/ambulation, dizziness, confusion, or memory loss. CT shows sinus inflammation without other acute abnormalities. EKG and chest x- ray are negative for acute abnormalities. Labs show some dehydration with normal white count. Patient states headache was 8.5 in severity and is now a 4 in severity. She is neurologically intact on exam. We will treat for sinus infection given sinus tenderness to palpation with CT findings. Recommend follow-up with primary care within 3 days. Discussed in detail signs and symptoms that should prompt immediate return to the ED with patient who verbalizes understanding Critical care attestation.: If time is entered above; I have spent that time in minutes in the direct care of this critically ill patient, excluding procedure time. ED Disposition Clinical Impression: Left maxillary sinusitis, Headache Disposition: 01 HOME / SELF CARE / HOMELESS Is pt being admited?: No Condition: Stable Instructions: Sinusitis, Adult, [id number] Prescriptions: Amoxicillin/Potassium Clav [Augmentin 875-125 Tablet] 1 each PO BID 7 Days #14 tab Butalb/Acetamin/Caff 50-325-40 [Fioricet 50-325-40] 1 tab PO Q8HR PRN #12 tablet PRN Reason: Headache Loratadine 10 mg PO QDAY 10 Days #10 tab Referrals: JUAN KO MD [Primary Care Provider] - 3-5 Days Forms: Work/School Release Form(ED)
--- NOTE | 2021-06-21 10:55 | Electrocardiograph Report ---
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 Electronically Signed On 06-21-2021 10:55:02 EST by Trey Patterson
--- NOTE | 2021-06-21 10:56 | Electrocardiograph Report ---
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
== END 2021-06-20 18:04 | disposition home or self-care (01) ==
LOC: ED 14:11
DX: J32.0 Chronic maxillary sinusitis (principal); E11.9 Type 2 diabetes mellitus without complications; Z79.82 Long term (current) use of aspirin; Z79.4 Long term (current) use of insulin; Z79.899 Other long term (current) drug therapy
CPT/HCPCS: 36415; 70450; 71046; 80053; 84484; 85025; 93005; 96360; 99284; J7030; Q0162

== ENCOUNTER 2021-09-17 18:00 | Emergency (ER) | payer SELFPAY ==
--- NOTE | 2021-09-17 18:47 | XRay Report ---
CHEST 2 VIEWS INDICATION / CLINICAL INFORMATION: Chest Pain. COMPARISON: 06/20/2021 FINDINGS: SUPPORT DEVICES: None. HEART / MEDIASTINUM: No significant abnormality. LUNGS / PLEURA: No significant pulmonary or pleural abnormality. No pneumothorax. ADDITIONAL FINDINGS: No significant additional findings. IMPRESSION: 1. No acute findings. Signer Name: Lisandro Watt MD Signed: 09/17/2021 6:43 PM Workstation Name: [id number]
[2021-09-17 19:32] LABS: Alanine Aminotransferase 17 units/L (7-56); Albumin 4.1 g/dL (3.9-5); Blood Urea Nitrogen 10 mg/dL (7-17); Calcium 9.5 mg/dL (8.4-10.2); Hemolysis Index 28
[2021-09-17 19:38] LABS: BUN/Creatinine Ratio 17
[2021-09-17 19:56] LABS: Hematocrit 40.8 % (30.3-42.9); Hemoglobin 13.3 gm/dl (10.1-14.3); Mean Corpuscular HGB Conc 33 % (30-34); Mean Corpuscular Volume 96 fl (79-97); Platelet Count 387 K/mm3 (140-440); Red Blood Count 4.25 M/mm3 (3.65-5.03); Red Cell Distribution Width 12.8 % (13.2-15.2)
[2021-09-18] MEDS: ACETAMINOPHEN 500 MG TAB PO ONE (03:48)
[2021-09-18] MEDS: ASPIRIN 325 MG TAB PO ONE (03:49)
--- NOTE | 2021-09-18 05:39 | Emergency Department Report ---
ED Chest Pain HPI - General Chief Complaint: Chest Pain Stated Complaint: CHEST PAIN/SOB Source: patient Mode of arrival: Ambulatory Limitations: No Limitations - History of Present Illness Initial Comments: Patient is a 46-year-old -Gambian female with a history of hypertension, flz-ulwdeca-psgmaruxo diabetes, hyperlipidemia and CVA with residual left arm intermittent numbness and tingling sensations presents to the ED with complaint of acute onset right-sided chest pain for the last 1 week but worse in the last 3 days. Patient states that the pain is intermittent and persistent especially with movement or palpation of the right chest wall. Patient states that the pain does not radiate to the neck or the arms bilaterally. Patient denies dizziness, syncope, headache, shortness of breath, nausea and vomiting, traumatic injury, fall, heavy lifting, diaphoresis, abdominal pain, neck pain, back pain, cough, sore throat, nasal and sinus congestion or hematemesis. MD Complaint: chest pain (RIGHT-SIDED) -: Sudden, week(s) (1) Onset: awoke with symptoms Pain Location: substernal, right chest Pain Radiation: neck Severity: severe Severity scale (0 -10): 7 Quality: sharp, pressure Consistency: intermittent Improves With: nothing Worsens With: palpation, movement re: denies: nausea, vomting, diaphoresis, dyspnea, sense of impending doom Other Symptoms: denies: cough, fever, syncope, rash, acid taste in mouth, leg swelling, burping Treatments Prior to Arrival: none Aspirin use within the Past 7 Days: (1) Yes - Related Data On Oral Contraceptives: No Home Medications Medication Instructions Recorded Confirmed Last Taken Atorvastatin Calcium [Lipitor] 80 mg PO QHS 03/19/21 03/19/21 Unknown DULoxetine [Cymbalta] 1 cap PO HS PRN 03/19/21 03/19/21 Unknown Dapagliflozin Propanediol [Farxiga] 10 mg PO QDAY 03/19/21 03/19/21 Unknown Docusate Sodium [Colace CAP] 2 cap PO QDAY 03/19/21 03/19/21 Unknown Insulin Aspart [Novolog Flexpen] 5 units SQ TID 03/19/21 03/19/21 Unknown Lisinopril/Hydrochlorothiazide 1 tab PO QDAY 03/19/21 03/19/21 Unknown [Zestoretic 20-12.5 mg] Metformin HCl [metFORMIN] 1,000 mg PO BID 03/19/21 03/19/21 Unknown Metoprolol [Lopressor TAB] 50 mg PO BID 03/19/21 03/19/21 Unknown Mv-Mins 85/Iron/FA/Dha/L.casei 1 cap PO QDAY 03/19/21 03/19/21 Unknown [Multi Pro Capsule] Topiramate [Topamax] 1 tab PO QDAY 03/19/21 03/19/21 Unknown Previous Rx's Medication Instructions Recorded Last Taken Type Aspirin EC [Halfprin EC] 81 mg PO QDAY 30 Days #30 tab 03/20/21 Unknown Rx Clopidogrel [Plavix] 75 mg PO QDAY 20 Days #20 tablet 03/20/21 Unknown Rx Amoxicillin/Potassium Clav 1 each PO BID 7 Days #14 tab 06/20/21 Unknown Rx [Augmentin 875-125 Tablet] Butalb/Acetamin/Caff 50-325-40 1 tab PO Q8HR PRN #12 tablet 06/20/21 Unknown Rx [Fioricet 50-325-40] Loratadine 10 mg PO QDAY 10 Days #10 tab 06/20/21 Unknown Rx Baclofen 20 mg PO Q12H PRN #20 tab 09/18/21 Unknown Rx Naproxen 500 mg PO Q12H PRN #30 tab 09/18/21 Unknown Rx Allergies Allergy/AdvReac Type Severity Reaction Status Date / Time No Known Allergies Allergy Verified 06/20/21 14:38 Heart Score - HEART Score History: Slightly suspicious EKG: Normal Age: < 45 Risk factors: > 3 risk factors or hx of atherosclerotic disease Troponin: < normal limit HEART Score: 2 - EKG Read Time Time EKG Completed: 02:36 EKG Read Time: 02:40 - Critical Actions Critical Actions: 0-3 pts:0.9-1.7%risk of adverse cardiac event.Candidate for discharge ED Review of Systems ROS: Stated complaint: CHEST PAIN/SOB Other details as noted in HPI Constitutional: denies: chills, fever Eyes: denies: eye pain, eye discharge, vision change ENT: denies: ear pain, throat pain Respiratory: denies: cough, shortness of breath, wheezing Cardiovascular: chest pain (Right-sided chest pain). denies: palpitations Endocrine: no symptoms reported Gastrointestinal: denies: abdominal pain, nausea, vomiting, diarrhea Genitourinary: denies: urgency, dysuria, discharge Musculoskeletal: denies: back pain, joint swelling, arthralgia Skin: denies: rash, lesions Neurological: denies: headache, weakness, paresthesias Psychiatric: denies: anxiety, depression Hematological/Lymphatic: denies: easy bleeding, easy bruising ED Past Medical Hx - Past Medical History Hx Hypertension: Yes Hx CVA: Yes (left-sided weakness) Hx Diabetes: Yes - Surgical History Hx Cholecystectomy: Yes Additional Surgical History: Hyperlipidemia; EGD - Social History Smoking Status: Never Smoker Substance Use Type: None - Medications Home Medications: Home Medications Medication Instructions Recorded Confirmed Last Taken Type Atorvastatin Calcium [Lipitor] 80 mg PO QHS 03/19/21 03/19/21 Unknown History DULoxetine [Cymbalta] 1 cap PO HS PRN 03/19/21 03/19/21 Unknown History Dapagliflozin Propanediol [Farxiga] 10 mg PO QDAY 03/19/21 03/19/21 Unknown History Docusate Sodium [Colace CAP] 2 cap PO QDAY 03/19/21 03/19/21 Unknown History Insulin Aspart [Novolog Flexpen] 5 units SQ TID 03/19/21 03/19/21 Unknown History Lisinopril/Hydrochlorothiazide 1 tab PO QDAY 03/19/21 03/19/21 Unknown History [Zestoretic 20-12.5 mg] Metformin HCl [metFORMIN] 1,000 mg PO BID 03/19/21 03/19/21 Unknown History Metoprolol [Lopressor TAB] 50 mg PO BID 03/19/21 03/19/21 Unknown History Mv-Mins 85/Iron/FA/Dha/L.casei 1 cap PO QDAY 03/19/21 03/19/21 Unknown History [Multi Pro Capsule] Topiramate [Topamax] 1 tab PO QDAY 03/19/21 03/19/21 Unknown History Aspirin EC [Halfprin EC] 81 mg PO QDAY 30 Days #30 tab 03/20/21 Unknown Rx Clopidogrel [Plavix] 75 mg PO QDAY 20 Days #20 tablet 03/20/21 Unknown Rx Amoxicillin/Potassium Clav 1 each PO BID 7 Days #14 tab 06/20/21 Unknown Rx [Augmentin 875-125 Tablet] Butalb/Acetamin/Caff 50-325-40 1 tab PO Q8HR PRN #12 tablet 06/20/21 Unknown Rx [Fioricet 50-325-40] Loratadine 10 mg PO QDAY 10 Days #10 tab 06/20/21 Unknown Rx Baclofen 20 mg PO Q12H PRN #20 tab 09/18/21 Unknown Rx Naproxen 500 mg PO Q12H PRN #30 tab 09/18/21 Unknown Rx ED Physical Exam - General Limitations: No Limitations General appearance: alert, in no apparent distress, anxious - Head Head exam: Present: atraumatic, normocephalic, normal inspection - Eye Eye exam: Present: normal appearance, PERRL, EOMI Pupils: Present: normal accommodation - ENT ENT exam: Present: normal exam, normal orophraynx, mucous membranes moist, TM's normal bilaterally, normal external ear exam - Neck Neck exam: Present: normal inspection, full ROM. Absent: tenderness - Respiratory Respiratory exam: Present: normal lung sounds bilaterally, chest wall tenderness (Palpable reproducible anterior right chest wall tenderness). Absent: respiratory distress, wheezes, rales, rhonchi, accessory muscle use, decreased breath sounds - Cardiovascular Cardiovascular Exam: Present: normal rhythm, tachycardia, normal heart sounds. Absent: systolic murmur, diastolic murmur, rubs, gallop - GI/Abdominal GI/Abdominal exam: Present: soft, normal bowel sounds. Absent: tenderness, rebound, hyperactive bowel sounds - Extremities Exam Extremities exam: Present: normal inspection, full ROM, normal capillary refill. Absent: tenderness - Back Exam Back exam: Present: normal inspection, full ROM, tenderness. Absent: CVA tenderness (R), CVA tenderness (L), muscle spasm, paraspinal tenderness, vertebral tenderness - Neurological Exam Neurological exam: Present: alert, oriented X3, CN II-XII intact, normal gait, reflexes normal - Psychiatric Psychiatric exam: Present: normal affect, normal mood - Skin Skin exam: Present: warm, dry, intact, normal color. Absent: rash ED Course Vital Signs 09/17/21 09/18/21 18:17 05:38 Temperature 98.4 F Pulse Rate 109 H 78 Respiratory 18 Rate O2 Sat by Pulse 98 100 Oximetry PK score - Pk Score Age > 65: (0) No Aspirin use within the Past 7 Days: (0) No 3 or more CAD Risk Factors: (0) No 2 or more Angina events in past 24 hrs: (0) No Known CAD with more than 50% Stenosis: (0) No Elevated Cardiac Markers: (0) No ST Deviation Greater than 0.5mm: (0) No PK Score: 0 ED Medical Decision Making - Lab Data Result diagrams: 09/17/21 18:44 09/17/21 18:44 - EKG Data EKG shows normal: sinus rhythm Rate: normal - EKG Data Interpretation: normal EKG 09/18/21 07:45 The EKG shows normal sinus rhythm with a ventricular rate of [address] wave changes. No pathological Q waves. - Radiology Data Radiology results: report reviewed, [place] [address] XRay Report Signed Patient: PAULINE ALATORRE MR#: [id number] : 1975 Acct:[id number] Age/Sex: 46 / F ADM Date: 09/17/21 Loc: ED Attending Dr: Ordering Physician: FRANKY GUERRERO MD Date of Service: 09/17/21 Procedure(s): XR chest routine 2V Accession Number(s): [id number] cc: ED MD CESAR Fluoro Time In Minutes: CHEST 2 VIEWS INDICATION / CLINICAL INFORMATION: Chest Pain. COMPARISON: 06/20/2021 FINDINGS: SUPPORT DEVICES: None. HEART / MEDIASTINUM: No significant abnormality. LUNGS / PLEURA: No significant pulmonary or pleural abnormality. No pneumothorax. ADDITIONAL FINDINGS: No significant additional findings. IMPRESSION: 1. No acute findings. Signer Name: Lisandro Watt MD Signed: 09/17/2021 6:43 PM Workstation Name: [id number] Transcribed By: TL Dictated By: Lisandro Watt MD Electronically Authenticated By: Lisandro Watt MD Signed Date/Time: 09/17/211842 DD/ 41 TD/TT: - Medical Decision Making This is a 46-year-old -Gambian female with a history of hypertension, yxr-llthgii-upvjnfbpu diabetes, hyperlipidemia and CVA with residual left arm intermittent numbness and tingling sensations presents to the ED with complaint of acute onset right-sided chest pain for the last 1 week but worse in the last 3 days. Patient states that the pain is intermittent and persistent especially with movement or palpation of the right chest wall. Patient states that the pain does not radiate to the neck or the arms bilaterally. In the ED, patient is alert and oriented x3 and is not in any distress, patient is anxious and tachycardic in triage but afebrile. Chest x-ray showed no acute cardiopulmonary abnormalities or pneumonitis. EKG shows normal sinus rhythm with a ventricular rate of 97 bpm and nonspecific T wave changes but no pathological Q waves. All lab test results were reviewed and are all nonactionable including the initial troponin that was performed 8 hours earlier, and repeat of troponin level which was also unremarkable 8 hours later. On reevaluation, patient chest pain resolved in the ED with treatment. Patient chest pain is reproducible on physical exam and with any movement. Patient symptoms are likely musculoskeletal given that all lab test results are unremarkable and EKG is unremarkable as well. Patient's heart score is 2. Patient was therefore discharged home on pain medications and advised to follow-up with her primary care physician in 5 to 7 days for reevaluation or return to the ED immediately if symptoms get worse. - Differential Diagnosis ACS; pneumonia; costochondritis; dissection; muscle strain; Critical care attestation.: If time is entered above; I have spent that time in minutes in the direct care of this critically ill patient, excluding procedure time. ED Disposition Clinical Impression: Atypical chest pain, Acute costochondritis, Muscle strain of anterior chest wall Disposition: 01 HOME / SELF CARE / HOMELESS Is pt being admited?: No Does the pt Need Aspirin: No Condition: Stable Instructions: Costochondritis, Aaha-cu-Jehj, Muscle Strain, Yzfk-lg-Aikj, Nonspecific Chest Pain, Adult, Ipee-fu-Yamr Additional Instructions: All lab test results were reviewed and are all nonactionable. Your symptoms are not likely due to a cardiac event, as the pain is reproducible on palpation and also cardiac enzymes are unremarkable. Therefore take medication as needed for pain, drink plenty of fluids and follow-up with your primary care physician in 5 to 7 days for reevaluation. Return to the ED immediately if symptoms get worse. Prescriptions: Baclofen 20 mg PO Q12H PRN #20 tab PRN Reason: Muscle Spasm Naproxen 500 mg PO Q12H PRN #30 tab PRN Reason: Pain , Severe (7-10) Referrals: MUNA DAMIAN [Other] - 3-5 Days Time of Disposition: 05:37 Print Language: BELARUSIAN
--- NOTE | 2021-09-20 19:50 | Electrocardiograph Report ---
[facility] Test Date: 2021-09-17 Test Time: 18:09:30 Pat Name: PAULINE ALATORRE Department: Room: Gender: F Ring Striker: HELENE : 1975 Requested By: VIJAYA CABRERA Order Number: [id number] Reading MD: Khai West Measurements Intervals [place] Rate: 108 P: 39 [place]: 167 QRS: -16 QRSD: 93 T: -10 QT: 350 QTc: 469 Interpretive Statements Sinus tachycardia Consider old anterior infarct Compared to ECG 06/20/2021 17:56:57 Sinus rate has increased Electronically Signed On 09-20-2021 19:50:07 EDT by Khai West
--- NOTE | 2021-09-20 19:55 | Electrocardiograph Report ---
[facility] Test Date: 2021-09-18 Test Time: 02:36:09 Pat Name: PAULINE ALATORRE Department: Room: Gender: F Cardiopulmonary Supervisor: LALITO : 1975 Requested By: FARHAT VILLANUEVA Order Number: [id number] Reading MD: Khai West Measurements Intervals [place] Rate: 97 P: 56 [place]: 162 QRS: 14 QRSD: 88 T: -16 QT: 372 QTc: 474 Interpretive Statements Sinus rhythm Poor R wave progression, possible old anterior infarct Borderline T abnormalities, diffuse leads Compared to ECG 06/20/2021 17:56:57 No significant change Electronically Signed On 09-20-2021 19:55:07 EDT by Khai West
== END 2021-09-18 05:47 | disposition home or self-care (01) ==
LOC: ED 18:00
DX: S29.011A Strain of muscle and tendon of front wall of thorax, initial encounter (principal); M94.0 Chondrocostal junction syndrome [Tietze]; I10 Essential (primary) hypertension; E11.9 Type 2 diabetes mellitus without complications; Z90.49 Acquired absence of other specified parts of digestive tract; Z79.899 Other long term (current) drug therapy; X58.XXXA Exposure to other specified factors, initial encounter; Y93.89 Activity, other specified; Y92.89 Other specified places as the place of occurrence of the external cause; Y99.8 Other external cause status
CPT/HCPCS: 36415; 71046; 80053; 84484; 85025; 93005; 99284

== ENCOUNTER 2021-12-13 12:21 | Emergency (ER) | payer SELFPAY ==
[2021-12-13] MEDS ORDERED: ASPIRIN 325 MG TAB PO ONE (12:31)
--- NOTE | 2021-12-13 13:27 | XRay Report ---
CHEST 2 VIEWS INDICATION: chest pain. COMPARISON: 09/17/2021 FINDINGS: Support devices: Loop recorder device overlies the heart shadow Heart: Within normal limits. Lungs/pleura: No acute air space or interstitial disease. No pneumothorax. Additional findings: None. IMPRESSION: No acute findings. No significant change since 09/17/2021. Signer Name: Codey Olguin Jr, MD Signed: 12/13/2021 1:22 PM Workstation Name: [id number]
[2021-12-13 13:39] LABS: Basophils # (Auto) 0.1 K/mm3 (0.0-0.1); Basophils % (Auto) 1.1 % (0.0-1.8); Eosinophils # (Auto) 0.1 K/mm3 (0.0-0.4); Eosinophils % (Auto) 1.4 % (0.0-4.3); Hematocrit 40.9 % (30.3-42.9); Hemoglobin 13.8 gm/dl (10.1-14.3); Lymphocytes # (Auto) 1.8 K/mm3 (1.2-5.4); Lymphocytes % (Auto) 24.3 % (13.4-35.0); Mean Corpuscular HGB Conc 34 % (30-34); Mean Corpuscular Volume 95 fl (79-97); Monocytes # (Auto) 0.5 K/mm3 (0.0-0.8); Monocytes % (Auto) 6.3 % (0.0-7.3); Platelet Count 308 K/mm3 (140-440); Red Blood Count 4.32 M/mm3 (3.65-5.03); Red Cell Distribution Width 13.1 % (13.2-15.2)
[2021-12-13 13:56] LABS: Alanine Aminotransferase 13 units/L (7-56); Albumin 4.1 g/dL (3.9-5); Blood Urea Nitrogen 9 mg/dL (7-17); Calcium 9.6 mg/dL (8.4-10.2); Hemolysis Index 2
[2021-12-13 14:02] LABS: BUN/Creatinine Ratio 15
--- NOTE | 2021-12-14 10:07 | Event Note ---
ED Screening Note ED Screening Note: HERE AT 0700 CC CP ORDERS PENDING PER PROTOCOL This initial assessment/diagnostic orders/clinical plan/treatment(s) is/are subject to change based on patients health status, clinical progression and re- assessment by fellow clinical providers in the ED. Further treatment and workup at subsequent clinical providers discretion. Patient/guardian urged not to elope from the ED as their condition may be serious if not clinically assessed and managed. Initial orders include: 1000 no longer in waiting room 1225 PT TO WINDOW STATING SHE FELL ASLEEP TO FT
--- NOTE | 2021-12-14 13:41 | Emergency Department Report ---
<ABDIRAHMANNAGAADRIANE - Last Filed: 12/14/21 13:30> ED Chest Pain HPI - General Chief Complaint: Chest Pain Stated Complaint: CHEST PAIN Time Seen by Provider: 12/14/21 07:53 Source: patient Mode of arrival: Ambulatory Limitations: No Limitations - History of Present Illness Initial Comments: 46-year-old -Nigerian female with a known history of resting tachycardia/arrhythmias currently requiring a loop recorder which is implanted in conjunction with type 2 diabetes, hypertension, history of a myocardial infarction, history of a CVA, and a history of TIA x2 presents to the emergency department on yesterday complaining of a 2 to 3-day history of chest pain of a sharp tingling nature occasionally associated with a headache. She reports no numbness, no tingling, no hemoptysis no hematemesis no hematochezia, no nausea or vomiting. Pain Location: substernal Pain Radiation: none Severity: mild Consistency: constant Improves With: nothing Worsens With: nothing re: nausea Other Symptoms: cough Treatments Prior to Arrival: none - Related Data Home Medications Medication Instructions Recorded Confirmed Last Taken Atorvastatin Calcium [Lipitor] 80 mg PO QHS 03/19/21 03/19/21 Unknown DULoxetine [Cymbalta] 1 cap PO HS PRN 03/19/21 03/19/21 Unknown Dapagliflozin Propanediol [Farxiga] 10 mg PO QDAY 03/19/21 03/19/21 Unknown Docusate Sodium [Colace CAP] 2 cap PO QDAY 03/19/21 03/19/21 Unknown Insulin Aspart [Novolog Flexpen] 5 units SQ TID 03/19/21 03/19/21 Unknown Lisinopril/Hydrochlorothiazide 1 tab PO QDAY 03/19/21 03/19/21 Unknown [Zestoretic 20-12.5 mg] Metformin HCl [metFORMIN] 1,000 mg PO BID 03/19/21 03/19/21 Unknown Metoprolol [Lopressor TAB] 50 mg PO BID 03/19/21 03/19/21 Unknown Mv-Mins 85/Iron/FA/Dha/L.casei 1 cap PO QDAY 03/19/21 03/19/21 Unknown [Multi Pro Capsule] Topiramate [Topamax] 1 tab PO QDAY 03/19/21 03/19/21 Unknown Previous Rx's Medication Instructions Recorded Last Taken Type Aspirin EC [Halfprin EC] 81 mg PO QDAY 30 Days #30 tab 03/20/21 Unknown Rx Clopidogrel [Plavix] 75 mg PO QDAY 20 Days #20 tablet 03/20/21 Unknown Rx Amoxicillin/Potassium Clav 1 each PO BID 7 Days #14 tab 06/20/21 Unknown Rx [Augmentin 875-125 Tablet] Butalb/Acetamin/Caff 50-325-40 1 tab PO Q8HR PRN #12 tablet 06/20/21 Unknown Rx [Fioricet 50-325-40] Loratadine 10 mg PO QDAY 10 Days #10 tab 06/20/21 Unknown Rx Baclofen 20 mg PO Q12H PRN #20 tab 09/18/21 Unknown Rx Naproxen 500 mg PO Q12H PRN #30 tab 09/18/21 Unknown Rx Allergies Allergy/AdvReac Type Severity Reaction Status Date / Time No Known Allergies Allergy Verified 12/14/21 10:20 Heart Score - HEART Score History: Slightly suspicious EKG: Normal Age: < 45 Risk factors: > 3 risk factors or hx of atherosclerotic disease Troponin: < normal limit HEART Score: 2 - EKG Read Time Time EKG Completed: 15:31 EKG Read Time: 15:31 ED Review of Systems Comment: All other systems reviewed and negative ED Past Medical Hx - Past Medical History Hx Hypertension: Yes Hx CVA: Yes (left-sided weakness) Hx Diabetes: Yes - Surgical History Hx Cholecystectomy: Yes Additional Surgical History: Hyperlipidemia; EGD - Social History Smoking Status: Never Smoker Substance Use Type: None - Medications Home Medications: Home Medications Medication Instructions Recorded Confirmed Last Taken Type Atorvastatin Calcium [Lipitor] 80 mg PO QHS 03/19/21 03/19/21 Unknown History DULoxetine [Cymbalta] 1 cap PO HS PRN 03/19/21 03/19/21 Unknown History Dapagliflozin Propanediol [Farxiga] 10 mg PO QDAY 03/19/21 03/19/21 Unknown History Docusate Sodium [Colace CAP] 2 cap PO QDAY 03/19/21 03/19/21 Unknown History Insulin Aspart [Novolog Flexpen] 5 units SQ TID 03/19/21 03/19/21 Unknown History Lisinopril/Hydrochlorothiazide 1 tab PO QDAY 03/19/21 03/19/21 Unknown History [Zestoretic 20-12.5 mg] Metformin HCl [metFORMIN] 1,000 mg PO BID 03/19/21 03/19/21 Unknown History Metoprolol [Lopressor TAB] 50 mg PO BID 03/19/21 03/19/21 Unknown History Mv-Mins 85/Iron/FA/Dha/L.casei 1 cap PO QDAY 03/19/21 03/19/21 Unknown History [Multi Pro Capsule] Topiramate [Topamax] 1 tab PO QDAY 03/19/21 03/19/21 Unknown History Aspirin EC [Halfprin EC] 81 mg PO QDAY 30 Days #30 tab 03/20/21 Unknown Rx Clopidogrel [Plavix] 75 mg PO QDAY 20 Days #20 tablet 03/20/21 Unknown Rx Amoxicillin/Potassium Clav 1 each PO BID 7 Days #14 tab 06/20/21 Unknown Rx [Augmentin 875-125 Tablet] Butalb/Acetamin/Caff 50-325-40 1 tab PO Q8HR PRN #12 tablet 06/20/21 Unknown Rx [Fioricet 50-325-40] Loratadine 10 mg PO QDAY 10 Days #10 tab 06/20/21 Unknown Rx Baclofen 20 mg PO Q12H PRN #20 tab 09/18/21 Unknown Rx Naproxen 500 mg PO Q12H PRN #30 tab 09/18/21 Unknown Rx ED Physical Exam - General Limitations: No Limitations General appearance: alert, in no apparent distress, other (Patient got moved back and forth Shae able to ambulate on her own power with no signs of acute respiratory distress no change in chest pain does remain with resting tachycardia) - Head Head exam: Present: atraumatic, normocephalic - Eye Eye exam: Present: normal appearance, PERRL, EOMI Pupils: Present: normal accommodation - ENT ENT exam: Present: mucous membranes moist - Neck Neck exam: Present: normal inspection - Respiratory Respiratory exam: Present: normal lung sounds bilaterally. Absent: respiratory distress - Cardiovascular Cardiovascular Exam: Present: normal rhythm, tachycardia, normal heart sounds. Absent: systolic murmur, diastolic murmur, rubs, gallop - GI/Abdominal GI/Abdominal exam: Present: soft, normal bowel sounds - Extremities Exam Extremities exam: Present: normal inspection - Back Exam Back exam: Present: normal inspection - Neurological Exam Neurological exam: Present: alert, oriented X3 - Psychiatric Psychiatric exam: Present: normal affect, normal mood - Skin Skin exam: Present: warm, dry, intact, normal color. Absent: rash PK score - Pk Score Age > 65: (0) No Aspirin use within the Past 7 Days: (0) No 3 or more CAD Risk Factors: (1) Yes 2 or more Angina events in past 24 hrs: (0) No Known CAD with more than 50% Stenosis: (0) No Elevated Cardiac Markers: (0) No ST Deviation Greater than 0.5mm: (0) No PK Score: 1 ED Medical Decision Making - Lab Data Result diagrams: 12/13/21 12:46 12/13/21 12:46 - Radiology Data Radiology results: [place] [address] XRay Report Signed Patient: PAULINE ALATORRE MR#: [id number] : 1975 Acct:[id number] Age/Sex: 46 / F ADM Date: 12/13/21 Loc: ED Attending Dr: Ordering Physician: ED MD CESAR Date of Service: 12/13/21 Procedure(s): XR chest routine 2V Accession Number(s): [id number] cc: ED MD CESAR Fluoro Time In Minutes: CHEST 2 VIEWS INDICATION: chest pain. COMPARISON: 09/17/2021 FINDINGS: Support devices: Loop recorder device overlies the heart shadow Heart: Within normal limits. Lungs/pleura: No acute air space or interstitial disease. No pneumothorax. Additional findings: None. IMPRESSION: No acute findings. No significant change since 09/17/2021. Signer Name: Codey Olguin Jr, MD Signed: 12/13/2021 1:22 PM Workstation Name: [id number] Transcribed By: TTR Dictated By: CODEY OLGUIN JR, MD Electronically Authenticated By: CODEY OLGUIN JR, MD Signed Date/Time: 12/13/211321 DD/ 21 TD/TT: - Medical Decision Making This patient presents with chest pain that is very unlikely angina or acute coronary syndrome. The emergency department evaluation has not identified any cause for suspicion that this chest pain has a cardiac etiology. Based on their history, EKG (which showed no evidence of ischemia or infarction) and imaging, in addition to the patient's physical exam, I see no evidence at this time for a malignant etiology for the patient's chest pain. There is no acute evidence for pulmonary embolus, acute myocardial infarction, pneumothorax, Boerhaeve syndrome, cardiac tamponade, thoracic artery dissection, or any other emergent cardiac, pulmonary or aortic pathology. Given the low pre-test probability for cardiac etiology of chest pain and the absence of any sign of ischemia or infarction, discharge for outpatient follow-up and further evaluation is reasonable. I have explained to the patient that even though a cardiac problem is very unlikely, follow-up and further testing is required to reduce further the already small uncertainty that exists. Other life-threatening diagnoses have been considered. The patient understands the need to return immediately if their symptoms worsen or they develop any new symptoms, and not to engage in any significant exertional activity until follow-up is obtained. ED Disposition Clinical Impression: Chest pain Disposition: 01 HOME / SELF CARE / HOMELESS Is pt being admited?: No Does the pt Need Aspirin: No Condition: Stable Instructions: Nonspecific Chest Pain, Adult Referrals: VERONICA ALLEN MD [Primary Care Provider] - 3-5 Days <ORTIZ JAUREGUI - Last Filed: 12/16/21 22:32> ED Review of Systems ROS: Stated complaint: CHEST PAIN Other details as noted in HPI ED Course Vital Signs 12/13/21 12/14/21 12:32 13:46 Temperature 98.3 F 97.2 F L Pulse Rate 117 H 104 H Respiratory 16 16 Rate Blood Pressure 168/93 111/82 [Left] O2 Sat by Pulse 95 98 Oximetry ED Medical Decision Making - Lab Data Result diagrams: 12/13/21 12:46 12/13/21 12:46 Critical care attestation.: If time is entered above; I have spent that time in minutes in the direct care of this critically ill patient, excluding procedure time.
[2021-12-14 13:47] VITALS: BP 111/82
--- NOTE | 2021-12-14 17:51 | Electrocardiograph Report ---
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
[2021-12-14 18:39] LABS: Bacteria,Urine 1+ /HPF (Negative); Mucus,Urine FEW /HPF
[2021-12-14 19:35] LABS: Bilirubin,Urine Negative (Negative); Blood,Urine Trace (Negative); Color,Urine Yellow (Yellow)
[2021-12-14 19:36] LABS: Protein,Urine <30 mg dL mg/dL (Negative); Urobilinogen,Urine < 2.0 mg/dL (<2.0)
== END 2021-12-14 15:50 | disposition home or self-care (01) ==
LOC: ED 12:21
DX: R07.9 Chest pain, unspecified (principal)
CPT/HCPCS: 36415; 71046; 80053; 81001; 82962; 84484; 85025; 93005; 99284